=== PATIENT | female | born 1935 | race Caucasian/White ===

== ENCOUNTER 2023-11-25 10:20 | Inpatient (IN) ==
--- NOTE | 2023-11-25 11:14 | Emergency Department Note ---
History of Present Illness General Chief complaint: Fall Stated complaint: FELL INJURING R HIP Time Seen by Provider: 11/25/23 10:59 History of Present Illness Provider complaint: Fall Onset (ago): hour(s) (1.5) Location: lower extremity and right Maximum Pain Intensity: 8 Current Pain Intensity: 8 Quality: + stabbing and + sharp Relieved By: + immobilization Exacerbated By: + movement Associated symptoms: no chest pain, no cough, no fever/chills, no headaches, no nausea/vomiting or no shortness of breath 88-year-old female on Eliquis presents emergency department for fall. Patient reports she tripped on her shoe 1.5 hours ago. She states she landed on her right hip and is now having pain in her right hip rating down to her right lower extremity. Pain is made worse with movement better with immobilization. Patient states she did not hit her head. Home Medications Medication Instructions Recorded Confirmed Type alprazolam 0.25 mg tablet 0.25 mg PO DAILY PRN Anxiety 11/25/23 11/25/23 History apixaban 2.5 mg tablet (Eliquis) 2.5 mg PO BID 11/25/23 11/25/23 History dapagliflozin propanediol 10 mg 10 mg PO .LUNCH TIME 11/25/23 11/25/23 History tablet (Farxiga) furosemide 40 mg tablet 40 mg PO QAM 11/25/23 11/25/23 History hydralazine 100 mg tablet 100 mg PO TID 11/25/23 11/25/23 History nifedipine 30 mg tablet,extended 30 mg PO BID 11/25/23 11/25/23 History release Allergies Allergy/AdvReac Type Severity Reaction Status Date / Time amoxicillin [From Augmentin] Allergy Intermediate makes her Unverified 11/25/23 14:52 ill, vomits ciprofloxacin [From Cipro] Allergy Intermediate makes her Unverified 11/25/23 14:52 ill, vomits clavulanic acid Allergy Intermediate makes her Unverified 11/25/23 14:52 [From Augmentin] ill, vomits doxycycline Allergy Intermediate makes her Unverified 11/25/23 14:52 ill, vomits Sulfa (Sulfonamide Allergy Intermediate Daughter Unverified 11/25/23 14:52 Antibiotics) isnt too sure the reaction, more serious though metronidazole AdvReac Intermediate makes her Unverified 11/25/23 14:52 ill, vomits Past Med/Surg History Medical History No pertinent family history Diabetes HTN (hypertension) Surgical History No pertinent past surgical history Social History Smoking Status: Former smoker Feels Safe at Home: Yes Physical Exam Vital Signs Vital Signs - 24 hr 11/25/23 10:36 Temperature 36.6 C Temperature Source Temporal Artery Scan Pulse Rate 66 Respiratory Rate 16 Respiratory Effort / Characteristics Non-Labored Respiratory Depth Normal Blood Pressure 182/70 H Blood Pressure Mean 107 Pulse Oximetry 97 Oxygen Delivery Method Room Air Sepsis Recent Fever Within 48 Hours No Sepsis New/Unexplained Change in Mental Status No Sepsis Action Taken by Nursing No Action Required Physical Exam GENERAL: She is oriented to person, place, and time. She appears well-developed and well-nourished. HENT: Exam performed. -Head: Normocephalic and atraumatic. EYES: Conjunctivae and EOM are normal. Pupils are equal, round, and reactive to light. Right eye exhibits no discharge. Left eye exhibits no discharge. No scleral icterus. NECK: Normal range of motion. Neck supple. No JVD present. No spinous process tenderness present. CV: Normal rate, regular rhythm, normal heart sounds and intact distal pulses. There is no peripheral edema. Palpable radial pulses bue. PULM/CHEST: Effort normal and breath sounds normal. No respiratory distress. No stridor. She has no wheezes. She has no rales. ABD: The abdomen is soft. There is no tenderness. There is no rebound, no guarding MUSC/SKEL: Pelvis stable. Right lower extremity: Pain on palpation of the right hip and right femur. Ecchymosis over the right lateral tibial area. Palpable DP and PT pulses. Left lower extremity: Within normal limits. NEURO: She is alert and oriented to person, place, and time. No cranial nerve deficit or sensory deficit. Coordination and gait normal. GCS eye subscore is 4. GCS verbal subscore is 5. GCS motor subscore is 6. Cerebellar tests wnl. Course Course 1059: The patient was evaluated in room C6. A complete history and physical exam was performed Cardiac monitoring: An order was placed for continuous cardiac monitoring. The monitor shows a rate of 60 with sinus rhythm interpreted by fl 1447: Vital signs stable. Imaging show a right subcapital femur fracture. Dr. Selby made aware via [place] text and he agrees that the patient should be admitted to the hospitalist team with him on consult. [facility] hospitalist team made aware of the patient. Administered Medications Acetaminophen (Acetaminophen 500 Mg Tab) 1,000 mg PO Q8H CORUTNEY Stop: 12/25/23 17:59 Last Admin: 11/25/23 18:02 Dose: 1,000 mg Documented By: [facility] Discontinued Medications Hydralazine HCl (Hydralazine Tab 50 Mg Tab) 100 mg PO NOW STA Stop: 11/25/23 15:18 Last Admin: 11/25/23 16:16 Dose: 100 mg Documented By: [facility] Sodium Chloride (Nss) 1,000 mls @ 75 mls/hr IV .[id number] COURTNEY Stop: 11/26/23 03:34 Last Infusion: 11/25/23 17:51 Dose: Infused Documented By: Infusion: 11/25/23 17:51 Dose: 0 mls/hr Documented By: Admin: 11/25/23 16:20 Dose: 75 mls/hr Documented By: [facility] Acetaminophen (Ofirmev) 1,000 mg in 100 mls @ 400 mls/hr IV NOW STA Stop: 11/25/23 15:19 Last Infusion: 11/25/23 17:50 Dose: Infused Documented By: [facility] Admin: 11/25/23 16:17 Dose: 400 mls/hr Documented By: [facility] Miscellaneous (Patient's Height &/Or Weight Needed) 1 each N/A Q2H COURTNEY Stop: 12/25/23 17:59 Last Admin: 11/25/23 18:03 Dose: 1 each Documented By: AMS Morphine Sulfate (Morphine Sulfate 2 Mg/Ml Carp) 2 mg IV NOW STA Stop: 11/25/23 11:46 Last Admin: 11/25/23 11:54 Dose: 2 mg Documented By: ARS Morphine Sulfate (Morphine Sulfate 4 Mg/Ml 1 Ml Carp\Vial) 4 mg IV Q1H PRN PRN Reason: Severe Pain (Rating 7,8,9,10) Stop: 12/09/23 14:00 Last Admin: 11/25/23 14:22 Dose: 4 mg Documented By: CHARMAINE Ondansetron HCl (Ondansetron Inj 2 Mg/Ml 2 Ml Vial) 4 mg IV NOW STA Stop: 11/25/23 11:46 Last Admin: 11/25/23 11:54 Dose: 4 mg Documented By: CHARMAINE Oxycodone HCl (Oxycodone Hcl Ir 5 Mg Tab (Immediate Release)) 5 mg PO NOW STA Stop: 11/25/23 17:45 Last Admin: 11/25/23 18:03 Dose: 5 mg Documented By: MARISA Medical Decision Making Laboratory Data Attestation: I reviewed the patient's lab results. 11/25/23 11:31 11/25/23 11:31 Lab Results 11/25/23 11/25/23 11/25/23 Range/Units 11:31 11:38 14:55 WBC 9.52 (4.8-10.8) K/ul RBC 3.96 L (4.20-5.40) M/uL Hgb 11.6 L (12.0-16.0) g/dl POC Hgb 12.2 (12.0-16.0) g/dl Hct 35.4 L (37.0-47.0) % POC Hct 36 L (37-47) % MCV 89.4 (80.0-100.0) fL MCH 29.3 (25.0-34.0) pg MCHC 32.8 (32.0-36.0) g/dL RDW Std Deviation 45.4 (36.4-46.3) fL RDW Coeff of Darline 13.9 (11.5-14.5) % Plt Count 350 (130-400) K/uL MPV 9.0 L (9.4-12.4) fL Immature Gran % (Auto) 0.4 % Neut % (Auto) 77.7 % Lymph % (Auto) 14.0 % Glenn % (Auto) 6.6 % Eos % (Auto) 0.7 % Baso % (Auto) 0.6 % Neut # (Auto) 7.39 H (1.40-6.50) K/uL Lymph # (Auto) 1.33 (1.20-3.40) K/uL Glenn # (Auto) 0.63 H (0.11-0.59) K/uL Eos # (Auto) 0.07 (0.00-0.50) K/uL Baso # (Auto) 0.06 (0.00-0.20) K/uL Immature Gran # (Auto) 0.04 (0.01-0.20) K/uL PT 10.6 (9.0-12.0) Seconds INR 1.0 (0.9-1.1) APTT 29 (21-31) Seconds PTT Ratio 1.1 POC Sodium 135 (135-144) mmol/L Sodium 133 L (136-145) mmol/L POC Potassium 4.9 (3.3-5.0) mmol/L Potassium 4.8 (3.5-5.1) mmol/L POC Chloride 104 (101-112) mmol/L Chloride 102 (98-107) mmol/L Carbon Dioxide 20 L (21-32) mmol/L POC Total CO2 20 L (24-31) mmol/L Anion Gap 11 (3-11) POC Anion Gap 17.0 (16-25) mmol/L POC BUN 62 H (7-18) mg/dl BUN 68 H (6-23) mg/dl Creatinine 2.15 H (0.6-1.2) mg/dl POC Creatinine 2.5 H (0.6-1.3) mg/dl Est Cr Clr Drug Dosing Not Reportable Est GFR ( Amer) 23.1 ml/min Est GFR (Non-Af Amer) 19.9 ml/min BUN/Creatinine Ratio 31.6 H (10-20) Glucose 128 H (70-99(Fasting)) mg/dl POC Glucose (other) 128 H (70-99) mg/dl Calcium 9.1 (8.6-10.3) mg/dl POC Ioniz Calcium [place] 1.15 (1.12-1.32) mmol/l Urine Color Yellow Urine Appearance Clear (Clear) Urine pH 5.0 (4.5-7.5) Ur Specific [place] 1.008 (1.000-1.030) Urine Protein 1+ H (Negative) Urine Glucose (UA) 1+ H (Negative) Urine Ketones Negative (Negative) Urine Blood Negative (Negative) Urine Nitrite Negative (Negative) Urine Bilirubin Negative (Negative) Urine Urobilinogen Negative (Negative) Ur Leukocyte Esterase Negative (Negative) Urine WBC (Auto) 0-5 (0-5) /hpf Urine RBC (Auto) 0-2 (0-2) /hpf U Hyaline Cast (Auto) 0-2 (0-2) /lpf U Epithel Cells (Auto) 0-2 (0-2) /hpf Urine Bacteria (Auto) None Seen (None Seen) Imaging Data Attestation: I personally reviewed and interpreted this imaging study as follows: My Impression: Pelvis x-ray: Right femur fracture Radiologist's Impression: Cervical Spine CT 11/25/23 11:10 CT SCAN OF THE CERVICAL SPINE CLINICAL HISTORY: Trauma. Fall. COMPARISON STUDY: No priors. TECHNIQUE: CT scan of the cervical spine is performed from the skull base to the upper thoracic spine. Images are reviewed in the axial, sagittal, and coronal planes. IV contrast was not administered for this examination. A dose lowering technique was utilized adhering to the principles of ALARA. FINDINGS: Skeletal structures: The skeletal structures are osteopenic. There is no evidence of fracture or subluxation involving the cervical spine. Vertebral body height and alignment are maintained. There is straightening of the cervical lordosis. Anterior osteophytes are seen throughout the The odontoid process and lateral masses are intact. The atlantoaxial articulation is preserved noting productive degenerative change. The spinous processes appear intact. Intervertebral discs: There is moderate to severe disc space narrowing at C4-C5 and C5-C6 with associated endplate sclerosis. Moderate narrowing is seen at C3- C4 and C6-C7. Central canal: Posterior disc osteophyte complexes at C4-C5, C5-C6, and C6-C7 likely contribute to acquired compromise of the central canal. Soft tissues: The prevertebral and paraspinous soft tissues are within normal limits. The thyroid gland is heterogeneous. There is atherosclerotic calcification of the carotid bulbs. Calvarium: The visualized calvarium at the skull base appears intact. Brain parenchyma: Partially visualized brain parenchyma at the skull base is within normal limits. Sinuses and mastoids: The visualized paranasal sinuses are clear. The mastoid air cells are well pneumatized. Cerumen is noted in the left external auditory canal. Lung apices: Emphysematous change is noted at the apices. The imaged upper lobe lung parenchyma is otherwise clear. IMPRESSION: 1. There is no evidence of cervical spine fracture or subluxation. 2. Osteopenia and spondylotic change as above. ACT 112: Negative or not required by law. Electronically signed by: Michael Pringle M.D. 11/25/2023 12:34 PM Chest X-Ray 11/25/23 11:10 SINGLE VIEW CHEST CLINICAL HISTORY: Fall. FINDINGS: An AP upright chest radiograph is obtained. No prior studies are available for comparison at the time of dictation. The heart is enlarged noting atherosclerotic calcification of the thoracic aorta. The pulmonary vasculature is noncongested. Nonspecific interstitial thickening is likely chronic. The lungs and pleural spaces are clear. No pneumothorax is seen. The skeletal structures are osteopenic. The bony thorax is grossly intact. IMPRESSION: Cardiomegaly with no active disease in the chest. ACT 112: Negative or not required by law. Electronically signed by: Michael Pringle M.D. 11/25/2023 2:12 PM Femur X-Ray 11/25/23 11:10 SINGLE VIEW PELVIS; 2 VIEWS RIGHT HIP; 3 VIEWS RIGHT FEMUR CLINICAL HISTORY: Fall. Right leg injury. FINDINGS: An AP view of the pelvis, AP and frog-leg views of the right hip, with AP, frog-leg, and crosstable lateral views of the right femur are obtained. Correlation is made with pelvic CT performed earlier the same day 11/25/2023. The skeletal structures are osteopenic. There is an impacted subcapital fracture of the right proximal femur with overlying soft tissue edema. The distal right femur appears intact. No additional acute fracture is seen involving the left hip or the bony pelvis. Mild arthritic change and joint space narrowing is seen in the hips. Degenerative sclerosis is noted in the sacroiliac joints. Lumbosacral spondylosis is partially imaged. The right knee joint is grossly maintained. Phleboliths are seen in the pelvis. IMPRESSION: 1. Impacted subcapital fracture of the right proximal femur. 2. The distal right femur appears intact. 3. No additional fracture is seen involving the left hip or bony pelvis. Electronically signed by: Michael Pringle M.D. 11/25/2023 2:[address] 11/25/23 11:10 CT SCAN OF THE BRAIN WITHOUT IV CONTRAST CLINICAL HISTORY: Fall. COMPARISON STUDY: No priors. TECHNIQUE: Unenhanced axial CT scan of the brain is performed from the vertex to the skull base. A dose lowering technique was utilized adhering to the principles of ALARA. CT DOSE: 1407.47 mGy.cm FINDINGS: Brain parenchyma: There is age-related involutional change noting mild to moderate subcortical and periventricular microangiopathic disease. There is no hemorrhage, mass effect, or evidence of acute territorial ischemia by CT criteria. Hicks-white matter differentiation is preserved. No extra-axial fluid collection is seen. Ventricles, sulci, cisterns: Prominent secondary to involutional change. Intracranial vasculature: There is atherosclerotic calcification of the cavernous carotid and vertebral arteries. Calvarium: The skeletal structures are osteopenic. No depressed calvarial fracture is seen. Sinuses and mastoids: The visualized paranasal sinuses are clear. The mastoid air cells are well pneumatized. Orbits: The bony orbits are grossly intact. There are bilateral ocular lens implants. IMPRESSION: There is no hemorrhage, mass effect, or evidence of acute territorial ischemia by CT criteria. ACT 112: Negative or not required by law. Electronically signed by: Michael Pringle M.D. 11/25/2023 12:30 PM Hip/Pelvis X-Ray 11/25/23 11:11 SINGLE VIEW PELVIS; 2 VIEWS RIGHT HIP; 3 VIEWS RIGHT FEMUR CLINICAL HISTORY: Fall. Right leg injury. FINDINGS: An AP view of the pelvis, AP and frog-leg views of the right hip, with AP, frog-leg, and crosstable lateral views of the right femur are obtained. Correlation is made with pelvic CT performed earlier the same day 11/25/2023. The skeletal structures are osteopenic. There is an impacted subcapital fracture of the right proximal femur with overlying soft tissue edema. The distal right femur appears intact. No additional acute fracture is seen involving the left hip or the bony pelvis. Mild arthritic change and joint space narrowing is seen in the hips. Degenerative sclerosis is noted in the sacroiliac joints. Lumbosacral spondylosis is partially imaged. The right knee joint is grossly maintained. Phleboliths are seen in the pelvis. IMPRESSION: 1. Impacted subcapital fracture of the right proximal femur. 2. The distal right femur appears intact. 3. No additional fracture is seen involving the left hip or bony pelvis. Electronically signed by: Michael Pringle M.D. 11/25/2023 2:10 PM Tibia/Fibula X-Ray 11/25/23 11:11 LEFT TIBIA AND FIBULA 2 VIEWS CLINICAL HISTORY: Fall. Left leg injury. FINDINGS: AP and lateral views of the left tibia and fibula are obtained. No prior studies are available for comparison at the time of dictation. The skeletal structures are osteopenic. There is no radiographic evidence of left tibial or fibular fracture. The knee and ankle joints are grossly maintained. The overlying soft tissues are normal as imaged. IMPRESSION: No fracture is identified. Electronically signed by: Michael Pringle M.D. 11/25/2023 2:11 PM Abdomen/Pelvis CT 11/25/23 11:45 CT SCAN OF THE ABDOMEN AND PELVIS WITHOUT IV CONTRAST CLINICAL HISTORY: Fall. COMPARISON STUDY: No priors TECHNIQUE: CT scan of the abdomen and pelvis is performed from the lung bases to the proximal femora. Images are reviewed in the axial, sagittal, and coronal planes. IV contrast was not administered for this examination. Limited examination is significantly suboptimal without IV contrast in the setting of trauma. A dose lowering technique was utilized adhering to the principles of ALARA. FINDINGS: Lung bases: The heart is enlarged and without pericardial effusion. The lung bases are clear. Liver: The unenhanced liver is normal in size, contour, and attenuation. There is no intrahepatic biliary ductal dilatation. Gallbladder: There are calcified gallstones with no CT evidence of acute cholecystitis. Spleen: Normal in size and attenuation. Pancreas: The unenhanced pancreas is grossly unremarkable. Adrenal glands: There is nonspecific thickening of the adrenal glands. Kidneys: The unenhanced kidneys demonstrated cortical atrophy. There is mild bilateral hydronephrosis, likely related to degree of bladder distention. Simple and complex bilateral renal cysts measure up to 1.3 cm. No renal calculi are identified. Abdominal vasculature: The abdominal aorta is normal in course and caliber noting advanced atherosclerotic calcification. Bowel: There is rectosigmoid fecal retention and mild to moderate constipation. No bowel obstruction is seen. There is mild colonic diverticulosis without CT evidence of acute diverticulitis. The appendix is normal as visualized. Peritoneum: There is no intraperitoneal free air or abdominal ascites. Lymphadenopathy: None. Pelvic viscera: The bladder is distended but otherwise normal in appearance. The uterus and adnexa are normal as visualized. Skeletal structures: The skeletal structures are osteopenic. There is an impacted subcapital fracture of the right proximal femur with surrounding hemorrhage and lipohemarthrosis. The left proximal femur and the bony pelvis appear intact. There is an age-indeterminate superior endplate compression deformity of L2 with mild loss of height. No lytic or blastic lesions are seen. Soft tissues: The patient is cachectic. IMPRESSION: 1. There is no evidence of solid organ injury in the abdomen or pelvis on this unenhanced examination. 2. Impacted subcapital fracture of the right proximal femur. 3. There is a minimal and age indeterminate superior endplate compression deformity of L2 which may be chronic. Correlate for point tenderness. 4. No additional findings are suspicious for acute fracture. 5. Bladder distention. 6. Mild bilateral hydronephrosis is likely related to bladder distention. 7. Rectosigmoid fecal retention and moderate constipation. 8. Cardiomegaly. 9. Additional findings above. ACT 112: Negative or not required by law. Electronically signed by: Michael Pringle M.D. 11/25/2023 1:50 PM ECG Data Attestation: I personally reviewed and interpreted this ECG as follows: Rate (beats per minute): 56 Rhythm: + sinus bradycardia ECG Intervals/blocks: + Normal QRS, + Normal HI and + Normal QT-c ECG ST segments: + Normal ST segments MDM Narrative 1059: The patient was evaluated in room C6. A complete history and physical exam was performed Cardiac monitoring: An order was placed for continuous cardiac monitoring. The monitor shows a rate of 60 with sinus rhythm interpreted by me 1447: Vital signs stable. Imaging show a right subcapital femur fracture. Dr. Selby made aware via [place] text and he agrees that the patient should be admitted to the hospitalist team with him on consult. [facility] hospitalist team made aware of the patient. Impression & Plan Closed femur fracture Discharge Plan Visit Data Chief Complaint: Fall Stated Complaint: FELL INJURING R HIP ED Provider: Srikanth Finn Discharge Problem: Closed femur fracture Patient Disposition: Admitted As Inpatient Discharge Instructions Interventions: ED Discharge Assessment Last Done: 11/25/23 18:04 Discharge Problem: Closed femur fracture Qualifiers: Encounter type: initial encounter Femur location: unspecified portion of femur Laterality: right
[2023-11-25 11:50] LABS: iSTAT Creatinine 2.5 mg/dl (0.6-1.3); iSTAT Hemoglobin 12.2 g/dl (12.0-16.0); iSTAT Ionized Calcium 1.15 mmol/l (1.12-1.32); iSTAT Potassium 4.9 mmol/L (3.3-5.0)
[2023-11-25] MEDS: MoRPHine SULFATE 2 MG/ML CARP IV STA (11:54)
[2023-11-25] MEDS: ONDANSETRON INJ 2 MG/ML 2 ML VIAL IV STA (11:54)
[2023-11-25 11:56] LABS: Partial Thromboplastin Ratio 1.1; Partial Thromboplastin Time 29 Seconds (21-31); Prothrombin Time 10.6 Seconds (9.0-12.0)
[2023-11-25 12:01] LABS: Basophils # (auto) 0.06 K/uL (0.00-0.20); Basophils % (auto) 0.6 %; Eosinophils # (auto) 0.07 K/uL (0.00-0.50); Eosinophils % (auto) 0.7 %; Hematocrit (blood only) 35.4 % (37.0-47.0); Hemoglobin 11.6 g/dl (12.0-16.0); Immature Granulocytes # (auto) 0.04 K/uL (0.01-0.20); Immature Granulocytes % (auto) 0.4 %; Lymphocytes # (auto) 1.33 K/uL (1.20-3.40); Mean Corpuscular Hemoglobin 29.3 pg (25.0-34.0); Mean Corpuscular Hgb Conc 32.8 g/dL (32.0-36.0); Mean Corpuscular Volume 89.4 fL (80.0-100.0); Monocytes # (auto) 0.63 K/uL (0.11-0.59); Monocytes % (auto) 6.6 %; Neutrophils # (auto) 7.39 K/uL (1.40-6.50); Neutrophils % (auto) 77.7 %; Platelet Count 350 K/uL (130-400); RDW Coefficient of Variation 13.9 % (11.5-14.5); RDW Standard Deviation 45.4 fL (36.4-46.3); Red Blood Count 3.96 M/uL (4.20-5.40); White Blood Count 9.52 K/ul (4.8-10.8)
[2023-11-25 12:07] LABS: Anion Gap 11 (3-11); BUN Creatinine Ratio 31.6 (10-20); Blood Urea Nitrogen 68 mg/dl (6-23); Carbon Dioxide 20 mmol/L (21-32); Chloride 102 mmol/L (98-107); Est GFR (African American) 23.1 ml/min; Est GFR (Non-African American) 19.9 ml/min; Glucose 128 mg/dl (70-99(Fasting)); Potassium 4.8 mmol/L (3.5-5.1); Sodium 133 mmol/L (136-145)
--- NOTE | 2023-11-25 12:31 | CT Scan Report ---
CT SCAN OF THE BRAIN WITHOUT IV CONTRAST CLINICAL HISTORY: Fall. COMPARISON STUDY: No priors. TECHNIQUE: Unenhanced axial CT scan of the brain is performed from the vertex to the skull base. A do se lowering technique was utilized adhering to the principles of ALARA. CT DOSE: 1407.47 mGy.cm FINDINGS: Brain parenchyma: There is age-related involutional change noting mild to moderate subcortical and pe riventricular microangiopathic disease. There is no hemorrhage, mass effect, or evidence of acute ter ritorial ischemia by CT criteria. Hicks-white matter differentiation is preserved. No extra-axial flui d collection is seen. Ventricles, sulci, cisterns: Prominent secondary to involutional change. Intracranial vasculature: There is atherosclerotic calcification of the cavernous carotid and vertebr al arteries. Calvarium: The skeletal structures are osteopenic. No depressed calvarial fracture is seen. Sinuses and mastoids: The visualized paranasal sinuses are clear. The mastoid air cells are well pneu matized. Orbits: The bony orbits are grossly intact. There are bilateral ocular lens implants. IMPRESSION: There is no hemorrhage, mass effect, or evidence of acute territorial ischemia by CT leydi ortiz. ACT 112: Negative or not required by law. Electronically signed by: Michael Pringle M.D. 11/25/2023 12:30 PM
--- NOTE | 2023-11-25 12:36 | CT Scan Report ---
CT SCAN OF THE CERVICAL SPINE CLINICAL HISTORY: Trauma. Fall. COMPARISON STUDY: No priors. TECHNIQUE: CT scan of the cervical spine is performed from the skull base to the upper thoracic spine . Images are reviewed in the axial, sagittal, and coronal planes. IV contrast was not administered fo r this examination. A dose lowering technique was utilized adhering to the principles of ALARA. FINDINGS: Skeletal structures: The skeletal structures are osteopenic. There is no evidence of fracture or subl uxation involving the cervical spine. Vertebral body height and alignment are maintained. There is s traightening of the cervical lordosis. Anterior osteophytes are seen throughout the The odontoid proc ess and lateral masses are intact. The atlantoaxial articulation is preserved noting productive degen erative change. The spinous processes appear intact. Intervertebral discs: There is moderate to severe disc space narrowing at C4-C5 and C5-C6 with associ ated endplate sclerosis. Moderate narrowing is seen at C3-C4 and C6-C7. Central canal: Posterior disc osteophyte complexes at C4-C5, C5-C6, and C6-C7 likely contribute to ac quired compromise of the central canal. Soft tissues: The prevertebral and paraspinous soft tissues are within normal limits. The thyroid gla nd is heterogeneous. There is atherosclerotic calcification of the carotid bulbs. Calvarium: The visualized calvarium at the skull base appears intact. Brain parenchyma: Partially visualized brain parenchyma at the skull base is within normal limits. Sinuses and mastoids: The visualized paranasal sinuses are clear. The mastoid air cells are well pneu matized. Cerumen is noted in the left external auditory canal. Lung apices: Emphysematous change is noted at the apices. The imaged upper lobe lung parenchyma is ot herwise clear. IMPRESSION: 1. There is no evidence of cervical spine fracture or subluxation. 2. Osteopenia and spondylotic change as above. ACT 112: Negative or not required by law. Electronically signed by: Michael Pringle M.D. 11/25/2023 12:34 PM
[2023-11-25 13:23] LABS: Calcium 9.1 mg/dl (8.6-10.3)
--- NOTE | 2023-11-25 13:52 | CT Scan Report ---
CT SCAN OF THE ABDOMEN AND PELVIS WITHOUT IV CONTRAST CLINICAL HISTORY: Fall. COMPARISON STUDY: No priors TECHNIQUE: CT scan of the abdomen and pelvis is performed from the lung bases to the proximal femora. Images are reviewed in the axial, sagittal, and coronal planes. IV contrast was not administered for this examination. Limited examination is significantly suboptimal without IV contrast in the setting of trauma. A dose lowering technique was utilized adhering to the principles of ALARA. FINDINGS: Lung bases: The heart is enlarged and without pericardial effusion. The lung bases are clear. Liver: The unenhanced liver is normal in size, contour, and attenuation. There is no intrahepatic benjamin iary ductal dilatation. Gallbladder: There are calcified gallstones with no CT evidence of acute cholecystitis. Spleen: Normal in size and attenuation. Pancreas: The unenhanced pancreas is grossly unremarkable. Adrenal glands: There is nonspecific thickening of the adrenal glands. Kidneys: The unenhanced kidneys demonstrated cortical atrophy. There is mild bilateral hydronephrosis , likely related to degree of bladder distention. Simple and complex bilateral renal cysts measure up to 1.3 cm. No renal calculi are identified. Abdominal vasculature: The abdominal aorta is normal in course and caliber noting advanced atheroscle rotic calcification. Bowel: There is rectosigmoid fecal retention and mild to moderate constipation. No bowel obstruction is seen. There is mild colonic diverticulosis without CT evidence of acute diverticulitis. The append ix is normal as visualized. Peritoneum: There is no intraperitoneal free air or abdominal ascites. Lymphadenopathy: None. Pelvic viscera: The bladder is distended but otherwise normal in appearance. The uterus and adnexa ar e normal as visualized. Skeletal structures: The skeletal structures are osteopenic. There is an impacted subcapital fracture of the right proximal femur with surrounding hemorrhage and lipohemarthrosis. The left proximal femu r and the bony pelvis appear intact. There is an age-indeterminate superior endplate compression defo rmity of L2 with mild loss of height. No lytic or blastic lesions are seen. Soft tissues: The patient is cachectic. IMPRESSION: 1. There is no evidence of solid organ injury in the abdomen or pelvis on this unenhanced examination . 2. Impacted subcapital fracture of the right proximal femur. 3. There is a minimal and age indeterminate superior endplate compression deformity of L2 which may b e chronic. Correlate for point tenderness. 4. No additional findings are suspicious for acute fracture. 5. Bladder distention. 6. Mild bilateral hydronephrosis is likely related to bladder distention. 7. Rectosigmoid fecal retention and moderate constipation. 8. Cardiomegaly. 9. Additional findings above. ACT 112: Negative or not required by law. Electronically signed by: Michael Pringle M.D. 11/25/2023 1:50 PM
[2023-11-25] MEDS ORDERED: MoRPHine SULFATE 2 MG/ML CARP IV PRN (14:01)
--- NOTE | 2023-11-25 14:12 | XRay Report ---
SINGLE VIEW PELVIS; 2 VIEWS RIGHT HIP; 3 VIEWS RIGHT FEMUR CLINICAL HISTORY: Fall. Right leg injury. FINDINGS: An AP view of the pelvis, AP and frog-leg views of the right hip, with AP, frog-leg, and cr osstable lateral views of the right femur are obtained. Correlation is made with pelvic CT performed earlier the same day 11/25/2023. The skeletal structures are osteopenic. There is an impacted subcapita l fracture of the right proximal femur with overlying soft tissue edema. The distal right femur appea rs intact. No additional acute fracture is seen involving the left hip or the bony pelvis. Mild arthr itic change and joint space narrowing is seen in the hips. Degenerative sclerosis is noted in the sac roiliac joints. Lumbosacral spondylosis is partially imaged. The right knee joint is grossly maintain ed. Phleboliths are seen in the pelvis. IMPRESSION: 1. Impacted subcapital fracture of the right proximal femur. 2. The distal right femur appears intact. 3. No additional fracture is seen involving the left hip or bony pelvis. Electronically signed by: Michael Prignle M.D. 11/25/2023 2:10 PM
--- NOTE | 2023-11-25 14:13 | XRay Report ---
LEFT TIBIA AND FIBULA 2 VIEWS CLINICAL HISTORY: Fall. Left leg injury. FINDINGS: AP and lateral views of the left tibia and fibula are obtained. No prior studies are availa ble for comparison at the time of dictation. The skeletal structures are osteopenic. There is no radi ographic evidence of left tibial or fibular fracture. The knee and ankle joints are grossly maintaine d. The overlying soft tissues are normal as imaged. IMPRESSION: No fracture is identified. Electronically signed by: Michael Pringle M.D. 11/25/2023 2:11 PM
--- NOTE | 2023-11-25 14:14 | XRay Report ---
SINGLE VIEW CHEST CLINICAL HISTORY: Fall. FINDINGS: An AP upright chest radiograph is obtained. No prior studies are available for comparison a t the time of dictation. The heart is enlarged noting atherosclerotic calcification of the thoracic a yuki. The pulmonary vasculature is noncongested. Nonspecific interstitial thickening is likely chroni c. The lungs and pleural spaces are clear. No pneumothorax is seen. The skeletal structures are osteo penic. The bony thorax is grossly intact. IMPRESSION: Cardiomegaly with no active disease in the chest. ACT 112: Negative or not required by law. Electronically signed by: Michael Pringle M.D. 11/25/2023 2:12 PM
[2023-11-25] MEDS: MoRPHine SULFATE 4 MG/ML 1 ML CARP\\VIAL IV PRN (14:22)
--- NOTE | 2023-11-25 15:12 | History & Physical Report ---
Date of Service November 25, 2023 Assessment & Plan (1) Fall: (2) Closed right femoral fracture: Plan: Patient is 88 year old female with PMH CKD IV, HTN, pulmonary hypertension, paroxysmal atrial fibrillation anticoagulated on Eliquis, sinus bradycardia presented to ER with complaint of trip and fall and right hip pain today. In ER patient hypertensive, HR 66, other vital stable CT head: No acute intracranial abnormality Hip pelvis x-ray: Impacted subcapital fracture of the right proximal femur Chest x-ray: No acute infiltrate. cardiomegaly CTA Abd/Pelvis: There is no evidence of solid organ injury in the abdomen or pelvis on this unenhanced examination. Impacted subcapital fracture of the right proximal femur. There is a minimal and age indeterminate superior endplate compression deformity of L2 which may be chronic. Correlate for point tenderness. No additional findings are suspicious for acute fracture. Bladder distention. Mild bilateral hydronephrosis is likely related to bladder distention. Rectosigmoid fecal retention and moderate constipation. Cardiomegaly. Bedrest Scheduled Tylenol, oxycodone, Dilaudid prn pain. Avoid NSAIDs with h/o CKD Bowel regimen Incentive spirometry NPO midnight Patient >4 METs functional capacity at baseline Ortho consult. CBC, BMP in am (3) HTN (hypertension): Plan: In ER patient hypertensive with SBP up to 200 Missed home afternoon dose hydralazine and will dose now. Will attempt improved pain control Monitor BP closely, may need to add additional agent Continue home nifedipine, hydralazine (4) CKD (chronic kidney disease), stage IV: Plan: Cr: 2.1. Was 1.8 on 05/2023 per review of patient labs from patient's portal. Daughter later was able to further look patient's portal and reports creatinine was 1.7 last month Follows with nephrology, Drew Zabala in [place], [place]. Continue farxiga Hold Lasix for now (5) Paroxysmal atrial fibrillation: Plan: Anticoagulated on Eliquis History sinus bradycardia and not on beta-blockers Hold home Eliquis (6) Sinus bradycardia: Plan: History chronic sinus bradycardia In ER HR 50s-60s Patient not on beta-blockers DVT Prophylaxis SCDs Full Code as per discussion with pt Follows with Dr Jaimee Beaulieu. [facility] in [place], [place] for routine care Pt was seen and care coordinated with Dr Arnold. See addendum I spent a total of 80 minutes reviewing notes, outpatient records, labs, medication, coordinating, documenting and providing care for this patient excluding time spent in the performance of separately billed services. History of Present Illness Chief Complaint: Fall Primary Care Provider: NO PCP Patient is 88 year old female with PMH CKD IV, HTN, pulmonary hypertension, paroxysmal atrial fibrillation anticoagulated on Eliquis, sinus bradycardia presented to ER with complaint of trip and fall and right hip pain. History obtained from patient, patient's daughter. Patient's daughter was able to partially access some of patient's medical history and labs via patient portal. Patient states was dusting today when she stepped back and tripped over her shoe causing her to fall onto her right side. Denies hitting head or LOC. Patient complains of pain to her right hip that is radiating to her right thigh. She states she struggled to get up however was able to get up onto her left leg but had significant pain and was unable to bear weight on her right leg. Denies any other extremity pain. Last took Eliquis this morning. She reports took morning meds however missed her midday doses. Denies fever/chills, diaphoresis, N/V/D/C, MEDEL, dizziness, syncope, vision changes, neck pain, CP, SOB, orthopnea, palpitations, cough, sore throat, rhinorrhea, abdominal pain, paresthesias, extremity edema, rashes, urinary symptoms. Allergies Allergy/AdvReac Type Severity Reaction Status Date / Time amoxicillin [From Augmentin] Allergy Intermediate makes her Unverified 11/25/23 14:52 ill, vomits ciprofloxacin [From Cipro] Allergy Intermediate makes her Unverified 11/25/23 14:52 ill, vomits clavulanic acid Allergy Intermediate makes her Unverified 11/25/23 14:52 [From Augmentin] ill, vomits doxycycline Allergy Intermediate makes her Unverified 11/25/23 14:52 ill, vomits Sulfa (Sulfonamide Allergy Intermediate Daughter Unverified 11/25/23 14:52 Antibiotics) isnt too sure the reaction, more serious though metronidazole AdvReac Intermediate makes her Unverified 11/25/23 14:52 ill, vomits Home Medications Medication Instructions Recorded Confirmed Type alprazolam 0.25 mg tablet 0.25 mg PO DAILY PRN Anxiety 11/25/23 11/25/23 History apixaban 2.5 mg tablet (Eliquis) 2.5 mg PO BID 11/25/23 11/25/23 History dapagliflozin propanediol 10 mg 10 mg PO .LUNCH TIME 11/25/23 11/25/23 History tablet (Farxiga) furosemide 40 mg tablet 40 mg PO QAM 11/25/23 11/25/23 History hydralazine 100 mg tablet 100 mg PO TID 11/25/23 11/25/23 History nifedipine 30 mg tablet,extended 30 mg PO BID 11/25/23 11/25/23 History release Past Med/Surg History Medical History (Updated 11/25/23 @ 20:40 by Becky Boone PA-C) Sinus bradycardia History of pericarditis Paroxysmal atrial fibrillation CKD (chronic kidney disease), stage IV Pulmonary hypertension HLD (hyperlipidemia) HTN (hypertension) Surgical History (Updated 11/25/23 @ 20:32 by Becky Boone PA-C) Hx of tonsillectomy History of cataract surgery Family History (Updated 11/25/23 @ 20:33 by Becky Boone PA-C) Other Hypertension Social History (Updated 11/25/23 @ 20:33 by Becky Boone PA-C) Smoking Status: Former smoker Hx Alcohol Use: Yes Alcohol type: beer Alcohol Intake Frequency: Monthly or Less Hx Substance Use: No Preferred Language: Botswan[place] Communication Ability: Effective Supplier Manager Required: No Current Living Situation: Alone Current Living Situation Comment: 2 story tall house Feels Safe at Home: Yes Safety Concerns: Feels Safe At This Time Review of Systems Review of Systems: All systems reviewed & are unremarkable except as noted in HPI & below Physical Exam Physical Exam: General: mild distress secondary to right hip pain, WDWN Head: normocephalic, atraumatic Eyes: PERRL, conjunctiva non-injected, anicteric ENT: normal inspection external ears, nose, mucous membranes moist Neck: supple, trachea midline, non-tender Lungs: clear, no respiratory distress, no wheezing/rhonchi/rales CV: RRR, + murmur, no JVD, no pretibial edema Abd: normal BS, soft, non-tender Ext: no cyanosis, no calf tenderness; RLE: +diffuse tenderness to palpation anterior hip, no attempted ROM, distal pulses palpable. LLE and BUE with ROM intact and non-tender. Neuro: A&O x 3, no focal deficits noted, normal affect Skin: warm, dry Results & Data Results & Data Vital Signs (Past 12 Hours) Vital Signs Temp Pulse Resp BP Pulse Ox O2 Del Method 11/25/23 10:36 36.6 C 66 16 182/70 H 97 Room Air Laboratory Results Short CBC 11/25/23 Range/Units 11:31 WBC 9.52 (4.8-10.8) K/ul Hgb 11.6 L (12.0-16.0) g/dl Hct 35.4 L (37.0-47.0) % Plt Count 350 (130-400) K/uL BMP 11/25/23 11:31 Sodium 133 L Potassium 4.8 Chloride 102 Carbon Dioxide 20 L BUN 68 H Creatinine 2.15 H Glucose 128 H Calcium 9.1 Urine 11/25/23 Range/Units 14:55 Urine Color Yellow Urine Appearance Clear (Clear) Urine pH 5.0 (4.5-7.5) Ur Specific [place] 1.008 (1.000-1.030) Urine Protein 1+ H (Negative) Urine Glucose (UA) 1+ H (Negative) Diagnostic Findings Cervical Spine CT 11/25/23 11:10 CT SCAN OF THE CERVICAL SPINE CLINICAL HISTORY: Trauma. Fall. COMPARISON STUDY: No priors. TECHNIQUE: CT scan of the cervical spine is performed from the skull base to the upper thoracic spine. Images are reviewed in the axial, sagittal, and coronal planes. IV contrast was not administered for this examination. A dose lowering technique was utilized adhering to the principles of ALARA. FINDINGS: Skeletal structures: The skeletal structures are osteopenic. There is no evidence of fracture or subluxation involving the cervical spine. Vertebral body height and alignment are maintained. There is straightening of the cervical lordosis. Anterior osteophytes are seen throughout the The odontoid process and lateral masses are intact. The atlantoaxial articulation is preserved noting productive degenerative change. The spinous processes appear intact. Intervertebral discs: There is moderate to severe disc space narrowing at C4-C5 and C5-C6 with associated endplate sclerosis. Moderate narrowing is seen at C3- C4 and C6-C7. Central canal: Posterior disc osteophyte complexes at C4-C5, C5-C6, and C6-C7 likely contribute to acquired compromise of the central canal. Soft tissues: The prevertebral and paraspinous soft tissues are within normal limits. The thyroid gland is heterogeneous. There is atherosclerotic calcification of the carotid bulbs. Calvarium: The visualized calvarium at the skull base appears intact. Brain parenchyma: Partially visualized brain parenchyma at the skull base is within normal limits. Sinuses and mastoids: The visualized paranasal sinuses are clear. The mastoid air cells are well pneumatized. Cerumen is noted in the left external auditory canal. Lung apices: Emphysematous change is noted at the apices. The imaged upper lobe lung parenchyma is otherwise clear. IMPRESSION: 1. There is no evidence of cervical spine fracture or subluxation. 2. Osteopenia and spondylotic change as above. ACT 112: Negative or not required by law. Electronically signed by: Michael Pringle M.D. 11/25/2023 12:34 PM Chest X-Ray 11/25/23 11:10 SINGLE VIEW CHEST CLINICAL HISTORY: Fall. FINDINGS: An AP upright chest radiograph is obtained. No prior studies are available for comparison at the time of dictation. The heart is enlarged noting atherosclerotic calcification of the thoracic aorta. The pulmonary vasculature is noncongested. Nonspecific interstitial thickening is likely chronic. The lungs and pleural spaces are clear. No pneumothorax is seen. The skeletal structures are osteopenic. The bony thorax is grossly intact. IMPRESSION: Cardiomegaly with no active disease in the chest. ACT 112: Negative or not required by law. Electronically signed by: Michael Pringle M.D. 11/25/2023 2:12 PM Femur X-Ray 11/25/23 11:10 SINGLE VIEW PELVIS; 2 VIEWS RIGHT HIP; 3 VIEWS RIGHT FEMUR CLINICAL HISTORY: Fall. Right leg injury. FINDINGS: An AP view of the pelvis, AP and frog-leg views of the right hip, with AP, frog-leg, and crosstable lateral views of the right femur are obtained. Correlation is made with pelvic CT performed earlier the same day 11/25/2023. The skeletal structures are osteopenic. There is an impacted subcapital fracture of the right proximal femur with overlying soft tissue edema. The distal right femur appears intact. No additional acute fracture is seen involving the left hip or the bony pelvis. Mild arthritic change and joint space narrowing is seen in the hips. Degenerative sclerosis is noted in the sacroiliac joints. Lumbosacral spondylosis is partially imaged. The right knee joint is grossly maintained. Phleboliths are seen in the pelvis. IMPRESSION: 1. Impacted subcapital fracture of the right proximal femur. 2. The distal right femur appears intact. 3. No additional fracture is seen involving the left hip or bony pelvis. Electronically signed by: Michael Pringle M.D. 11/25/2023 2:[address] 11/25/23 11:10 CT SCAN OF THE BRAIN WITHOUT IV CONTRAST CLINICAL HISTORY: Fall. COMPARISON STUDY: No priors. TECHNIQUE: Unenhanced axial CT scan of the brain is performed from the vertex to the skull base. A dose lowering technique was utilized adhering to the principles of ALARA. CT DOSE: 1407.47 mGy.cm FINDINGS: Brain parenchyma: There is age-related involutional change noting mild to moderate subcortical and periventricular microangiopathic disease. There is no hemorrhage, mass effect, or evidence of acute territorial ischemia by CT criteria. Hicks-white matter differentiation is preserved. No extra-axial fluid collection is seen. Ventricles, sulci, cisterns: Prominent secondary to involutional change. Intracranial vasculature: There is atherosclerotic calcification of the cavernous carotid and vertebral arteries. Calvarium: The skeletal structures are osteopenic. No depressed calvarial fracture is seen. Sinuses and mastoids: The visualized paranasal sinuses are clear. The mastoid air cells are well pneumatized. Orbits: The bony orbits are grossly intact. There are bilateral ocular lens implants. IMPRESSION: There is no hemorrhage, mass effect, or evidence of acute territorial ischemia by CT criteria. ACT 112: Negative or not required by law. Electronically signed by: Michael Pringle M.D. 11/25/2023 12:30 PM Hip/Pelvis X-Ray 11/25/23 11:11 SINGLE VIEW PELVIS; 2 VIEWS RIGHT HIP; 3 VIEWS RIGHT FEMUR CLINICAL HISTORY: Fall. Right leg injury. FINDINGS: An AP view of the pelvis, AP and frog-leg views of the right hip, with AP, frog-leg, and crosstable lateral views of the right femur are obtained. Correlation is made with pelvic CT performed earlier the same day 11/25/2023. The skeletal structures are osteopenic. There is an impacted subcapital fracture of the right proximal femur with overlying soft tissue edema. The distal right femur appears intact. No additional acute fracture is seen involving the left hip or the bony pelvis. Mild arthritic change and joint space narrowing is seen in the hips. Degenerative sclerosis is noted in the sacroiliac joints. Lumbosacral spondylosis is partially imaged. The right knee joint is grossly maintained. Phleboliths are seen in the pelvis. IMPRESSION: 1. Impacted subcapital fracture of the right proximal femur. 2. The distal right femur appears intact. 3. No additional fracture is seen involving the left hip or bony pelvis. Electronically signed by: Michael Pringle M.D. 11/25/2023 2:10 PM Tibia/Fibula X-Ray 11/25/23 11:11 LEFT TIBIA AND FIBULA 2 VIEWS CLINICAL HISTORY: Fall. Left leg injury. FINDINGS: AP and lateral views of the left tibia and fibula are obtained. No prior studies are available for comparison at the time of dictation. The skeletal structures are osteopenic. There is no radiographic evidence of left tibial or fibular fracture. The knee and ankle joints are grossly maintained. The overlying soft tissues are normal as imaged. IMPRESSION: No fracture is identified. Electronically signed by: Michael Pringle M.D. 11/25/2023 2:11 PM Abdomen/Pelvis CT 11/25/23 11:45 CT SCAN OF THE ABDOMEN AND PELVIS WITHOUT IV CONTRAST CLINICAL HISTORY: Fall. COMPARISON STUDY: No priors TECHNIQUE: CT scan of the abdomen and pelvis is performed from the lung bases to the proximal femora. Images are reviewed in the axial, sagittal, and coronal planes. IV contrast was not administered for this examination. Limited examination is significantly suboptimal without IV contrast in the setting of trauma. A dose lowering technique was utilized adhering to the principles of ALARA. FINDINGS: Lung bases: The heart is enlarged and without pericardial effusion. The lung bases are clear. Liver: The unenhanced liver is normal in size, contour, and attenuation. There is no intrahepatic biliary ductal dilatation. Gallbladder: There are calcified gallstones with no CT evidence of acute cholecystitis. Spleen: Normal in size and attenuation. Pancreas: The unenhanced pancreas is grossly unremarkable. Adrenal glands: There is nonspecific thickening of the adrenal glands. Kidneys: The unenhanced kidneys demonstrated cortical atrophy. There is mild bilateral hydronephrosis, likely related to degree of bladder distention. Simple and complex bilateral renal cysts measure up to 1.3 cm. No renal calculi are identified. Abdominal vasculature: The abdominal aorta is normal in course and caliber noting advanced atherosclerotic calcification. Bowel: There is rectosigmoid fecal retention and mild to moderate constipation. No bowel obstruction is seen. There is mild colonic diverticulosis without CT evidence of acute diverticulitis. The appendix is normal as visualized. Peritoneum: There is no intraperitoneal free air or abdominal ascites. Lymphadenopathy: None. Pelvic viscera: The bladder is distended but otherwise normal in appearance. The uterus and adnexa are normal as visualized. Skeletal structures: The skeletal structures are osteopenic. There is an impacted subcapital fracture of the right proximal femur with surrounding hemorrhage and lipohemarthrosis. The left proximal femur and the bony pelvis appear intact. There is an age-indeterminate superior endplate compression deformity of L2 with mild loss of height. No lytic or blastic lesions are seen. Soft tissues: The patient is cachectic. IMPRESSION: 1. There is no evidence of solid organ injury in the abdomen or pelvis on this unenhanced examination. 2. Impacted subcapital fracture of the right proximal femur. 3. There is a minimal and age indeterminate superior endplate compression deformity of L2 which may be chronic. Correlate for point tenderness. 4. No additional findings are suspicious for acute fracture. 5. Bladder distention. 6. Mild bilateral hydronephrosis is likely related to bladder distention. 7. Rectosigmoid fecal retention and moderate constipation. 8. Cardiomegaly. 9. Additional findings above. ACT 112: Negative or not required by law. Electronically signed by: Michael Pringle M.D. 11/25/2023 1:50 PM Supervising Physician Co-Signing Physician Notes I have seen and examined the patient and have discussed the case with the provider above. I have reviewed the advanced practitioner's documentation, and I agree with, and take responsibility for that plan of care. 88 yo F s/p fall on apixaban. She didn't hit her head. Afte rseveral hours there is no new pain reported anywhere. Subcapital fracture of the right proximal femur found on trauma survey. She appears in NAD and is WNWD. CV and cardio exam within normal limits. No h/o issues with anesthesia. No h/o blood clots. Denies CP or SOB in the last month and is very active at baseline. Elevated creatinine and age pose additional risk perioperatively, would recommend holding to proceed to surgery for 48 hours to allow apixaban to wear off. Last dose was am of 11/24. LAbs/MEds/Imaging/EKG reviewed. No issues with proceeding to surgery when able. Cont pain control efforts. Monitor BMP in setting of known CKD. DO [place]
[2023-11-25 15:38] LABS: Appearance Urine Clear (Clear); Bacteria Urine Automated None Seen (None Seen); Bilirubin Urine Negative (Negative); Blood Urine Negative (Negative); Cast Urine Automated 0-2 /lpf (0-2); Color Urine Yellow; Epithelial Cell Urine Auto 0-2 /hpf (0-2); Glucose Urine UA 1+ (Negative); Ketones Urine Negative (Negative); Leukocyte Esterase Urine Negative (Negative); Nitrite Urine Negative (Negative); Protein Urine 1+ (Negative); RBC Urine Automated 0-2 /hpf (0-2); Specific Gravity Urine 1.008 (1.000-1.030); Urobilinogen Urine Negative (Negative); WBC Urine Automated 0-5 /hpf (0-5)
[2023-11-25] MEDS: hydrALAZINE TAB 50 MG TAB PO STA (16:16)
[2023-11-25] MEDS: ACETAMINOPHEN 1,000 MG/100 ML VIAL IV STA (16:17)
[2023-11-25] MEDS: SODIUM CHLORIDE 0.9% 1,000 ML IV SCH (16:20)
[2023-11-25] MEDS ORDERED: bisacodyL 10 MG SUPP PR PRN (17:44)
[2023-11-25] MEDS ORDERED: HYDROmorphone INJ 0.5 MG/0.5 ML SYR IV PRN (17:44)
[2023-11-25] MEDS ORDERED: MAGNESIUM HYDROXIDE SUSP 30 ML UDC PO PRN (17:44)
[2023-11-25] MEDS ORDERED: NALOXONE HCL 0.4 MG/1 ML VIAL/CARP IV PRN (17:44)
[2023-11-25] MEDS ORDERED: ONDANSETRON INJ 2 MG/ML 2 ML VIAL IV PRN (17:44)
[2023-11-25] MEDS: ACETAMINOPHEN 500 MG TAB PO SCH (18:02)
[2023-11-25] MEDS: oxyCODONE HCL IR 5 MG TAB (IMMEDIATE RELEASE) PO STA (18:03)
[2023-11-25] MEDS: Patient's HEIGHT &/or WEIGHT Needed SCH (18:03)
[2023-11-25] MEDS: hydrALAZINE HCL 20 MG/ML VIAL IV STA (19:02)
[2023-11-25] MEDS: NIFEdipine EXTENDED REL 30 MG TABCR PO SCH (20:18)
[2023-11-25] MEDS: hydrALAZINE TAB 50 MG TAB PO SCH (20:19)
[2023-11-25] MEDS: hydrALAZINE HCL 20 MG/ML VIAL IV PRN (23:22)
[2023-11-26] MEDS: oxyCODONE HCL IR 5 MG TAB (IMMEDIATE RELEASE) PO PRN (06:30)
[2023-11-26 07:09] LABS: Hematocrit (blood only) 30.9 % (37.0-47.0); Hemoglobin 10.1 g/dl (12.0-16.0); Mean Corpuscular Hemoglobin 29.7 pg (25.0-34.0); Mean Corpuscular Hgb Conc 32.7 g/dL (32.0-36.0); Mean Corpuscular Volume 90.9 fL (80.0-100.0); Platelet Count 259 K/uL (130-400); RDW Coefficient of Variation 14.1 % (11.5-14.5); RDW Standard Deviation 46.9 fL (36.4-46.3); White Blood Count 8.94 K/ul (4.8-10.8)
[2023-11-26 07:33] LABS: Albumin Globulin Ratio 1.1 (0.9-2); Albumin Level 3.6 gm/dl (3.4-5.0); BUN Creatinine Ratio 26.9 (10-20); Bilirubin,Total 0.4 mg/dl (0.2-1.0); Calcium 8.3 mg/dl (8.6-10.3); Creatinine Clr Calc Pharmacy 12.1 ml/min; Est GFR (African American) 20.4 ml/min; Est GFR (Non-African American) 17.6 ml/min; Globulin 3.2 gm/dl (2.5-4.0); Total Protein 6.8 gm/dl (6.0-8.3)
[2023-11-26] MEDS ORDERED: POLYETHYLENE (MIRALAX) 17 GM PACK PO PRN (08:56)
--- NOTE | 2023-11-26 09:20 | Orthopedic Consultation ---
Date of Service November 26, 2023 Assessment & Plan (1) Closed right femoral fracture: We discussed the diagnosis and treatment options at bedside today. I recommended cannulated screw fixation of the right hip. She understands the risk, benefits, and alternatives to procedures like to proceed. Questions were answered and consents were signed. Time was spent scribing the procedure and postop expectations. The decision was made for surgery. She is currently NPO. We will plan to do the procedure later this morning. History of Present Illness Reason for Consultation: Right hip fracture. Attending Physician: Ryley Bee MD Kiera is a pleasant 88-year-old female who is in town for graduation. She normally lives in [place]. She is a community ambulator without assistance. Unfortunately she fell and injured her right hip. She came to the emergency room where radiographs demonstrated a valgus displaced right femoral neck fracture. She was admitted to the hospitalist service. Orthopedics was consulted to evaluate and treat.. . Allergies Allergy/AdvReac Type Severity Reaction Status Date / Time amoxicillin [From Augmentin] Allergy Intermediate makes her Unverified 11/25/23 14:52 ill, vomits ciprofloxacin [From Cipro] Allergy Intermediate makes her Unverified 11/25/23 14:52 ill, vomits clavulanic acid Allergy Intermediate makes her Unverified 11/25/23 14:52 [From Augmentin] ill, vomits doxycycline Allergy Intermediate makes her Unverified 11/25/23 14:52 ill, vomits Sulfa (Sulfonamide Allergy Intermediate Daughter Unverified 11/25/23 14:52 Antibiotics) isnt too sure the reaction, more serious though metronidazole AdvReac Intermediate makes her Unverified 11/25/23 14:52 ill, vomits Home Medications Medication Instructions Recorded Confirmed Type alprazolam 0.25 mg tablet 0.25 mg PO DAILY PRN Anxiety 11/25/23 11/25/23 History apixaban 2.5 mg tablet (Eliquis) 2.5 mg PO BID 11/25/23 11/25/23 History dapagliflozin propanediol 10 mg 10 mg PO .LUNCH TIME 11/25/23 11/25/23 History tablet (Farxiga) furosemide 40 mg tablet 40 mg PO QAM 11/25/23 11/25/23 History hydralazine 100 mg tablet 100 mg PO TID 11/25/23 11/25/23 History nifedipine 30 mg tablet,extended 30 mg PO BID 11/25/23 11/25/23 History release Past Med/Surg History Medical History Sinus bradycardia History of pericarditis Paroxysmal atrial fibrillation CKD (chronic kidney disease), stage IV Pulmonary hypertension HLD (hyperlipidemia) HTN (hypertension) Surgical History Hx of tonsillectomy History of cataract surgery Family History Other Hypertension Social History Smoking Status: Former smoker Hx Alcohol Use: Yes Alcohol type: beer Alcohol Intake Frequency: Monthly or Less Hx Substance Use: No Preferred Language: Greek Communication Ability: Effective Operational Trainer Required: No Current Living Situation: Alone Current Living Situation Comment: 2 story tall house Feels Safe at Home: Yes Safety Concerns: Feels Safe At This Time Review of Systems All systems reviewed & are unremarkable except as noted in HPI & below. Physical Exam On physical examination the right hip, her leg lengths are equal. She has pain with logroll of the right hip.. Constitutional WD/WN, vitals as above Eyes PERRL, conjunctivae normal, anicteric sclerae ENMT external ear and nose normal, oropharynx normal Neck trachea midline, no thyromegaly Respiratory normal respiratory effort Cardiovascular RRR, no murmur, no edema Gastrointestinal (Abdomen) normal bowel sounds, soft, nontender, no hepatosplenomegaly Psychiatric A+Ox3, euthymic affect Results & Data Results & Data Laboratory Results . Diagnostic Findings X-rays of the right hip show a valgus impacted right femoral neck fracture.. PG Care Time/CCT Total # of Minutes Spent Total Time Spent with Patient: Total time spent is greater than 50% in coordination of care (as documented) at patient's floor/unit and/or counseling patient: Coding Level of Care Code 91582 IN/OBS CONSULT LVL 4,60M (57 - DECISION FOR SURGERY) Diagnoses Closed right femoral fracture S72.91XA
[2023-11-26] MEDS ORDERED: ePHEDrine sulfate 50 MG/ML AMP IV PRN (09:22)
[2023-11-26] MEDS ORDERED: ATROPINE SULFATE 0.1 MG/ML 10ML SYR IV PRN (09:22)
[2023-11-26] MEDS ORDERED: ONDANSETRON INJ 2 MG/ML 2 ML VIAL IV PRN (09:22)
--- NOTE | 2023-11-26 09:22 | Anesthesiology Consultation ---
Date of Service November 26, 2023 Assessment & Plan Chart Review Chart Review: Acceptable Risk for Surgery and Patient NOT seen in Pre Admission Testing Consults Requested none ASA ASA3 Proposed Anesthesia Anesthesia Type: General Risk / Benefits Reviewed With: PT / POA / Parent / Guardian, Accepts Plan and Informed Consent Obtained History Surgery Operation Date: 11/26/23 12:00 Proposed Procedures p ORIF Hip Cannulated Screw(Right) - Christopher Selby, DO Height/Weight Height: 5 ft 1 in Weight: 47.1 kg Allergies Allergy/AdvReac Type Severity Reaction Status Date / Time amoxicillin [From Augmentin] Allergy Intermediate makes her Unverified 11/25/23 14:52 ill, vomits ciprofloxacin [From Cipro] Allergy Intermediate makes her Unverified 11/25/23 14:52 ill, vomits clavulanic acid Allergy Intermediate makes her Unverified 11/25/23 14:52 [From Augmentin] ill, vomits doxycycline Allergy Intermediate makes her Unverified 11/25/23 14:52 ill, vomits Sulfa (Sulfonamide Allergy Intermediate Daughter Unverified 11/25/23 14:52 Antibiotics) isnt too sure the reaction, more serious though metronidazole AdvReac Intermediate makes her Unverified 11/25/23 14:52 ill, vomits Medications Home Medications Medication Instructions Recorded Confirmed Last Taken alprazolam 0.25 mg tablet 0.25 mg PO DAILY PRN Anxiety 11/25/23 11/25/23 Unknown apixaban 2.5 mg tablet (Eliquis) 2.5 mg PO BID 11/25/23 11/25/23 11/25/23 1 of 2 dapagliflozin propanediol 10 mg 10 mg PO .LUNCH TIME 11/25/23 11/25/23 Unknown tablet (Farxiga) furosemide 40 mg tablet 40 mg PO QAM 11/25/23 11/25/23 11/25/23 hydralazine 100 mg tablet 100 mg PO TID 11/25/23 11/25/23 11/25/23 1 of 3 nifedipine 30 mg tablet,extended 30 mg PO BID 11/25/23 11/25/23 11/25/23 release 1 of 2 Active Medications Generic Name Dose Route Start Last Admin Trade Name Freq PRN Reason Stop Dose Admin Acetaminophen 1,000 mg 11/25/23 18:00 11/26/23 08:42 Acetaminophen 500 Mg Tab PO 12/25/23 17:59 Not Given Q8H COURTNEY Hydralazine HCl 100 mg 11/25/23 21:00 11/26/23 07:41 Hydralazine Tab 50 Mg Tab PO 12/25/23 20:59 100 mg TID COURTNEY Administration Hydralazine HCl 10 mg 11/25/23 23:04 11/25/23 23:22 Hydralazine Hcl 20 Mg/Ml Vial IV 12/25/23 23:03 10 mg Q6H PRN Administration SBP>180 Miscellaneous 1 each 11/26/23 00:00 11/26/23 07:38 Dapagliflozin Propanediol [Farxiga] 10 Mg Tablet ~ Order Awaiting Action N/A 12/26/23 00:00 Not Given QS COURTNEY Nifedipine 30 mg 11/25/23 21:00 11/26/23 07:41 Nifedipine Extended Rel 30 Mg Tabcr PO 12/25/23 20:59 30 mg BID COURTNEY Administration Oxycodone HCl 5 mg 11/25/23 17:44 11/26/23 06:30 Oxycodone Hcl Ir 5 Mg Tab (Immediate Release) PO 12/09/23 17:43 5 mg Q4H PRN Administration MODERATE Pain (4,5,6) & Pre PT Past Medical History Medical History Sinus bradycardia History of pericarditis Paroxysmal atrial fibrillation CKD (chronic kidney disease), stage IV Pulmonary hypertension HLD (hyperlipidemia) HTN (hypertension) Exercise / Class Metabolic Activity II 4-5 Yardwork/Stairs/Walk up hill Past Family History Family History Other Hypertension Past Surgical History Surgical History Hx of tonsillectomy History of cataract surgery Past Anesthesia History No Hx of Anesthesia Complications and No Family Hx of Anesthesia Complications History of PONV No Hx of PONV and No Hx of Motion Sickness Social History Smoking Status: Former smoker Hx Alcohol Use: Yes Alcohol type: beer alcohol intake frequency: a few times a month Hx Substance Use: No Review of Systems ROS Unobtainable: All systems reviewed & are unremarkable except as noted in HPI & below Physical Exam Vital Signs Last Vital Signs Temp 37.1 C 11/26/23 08:44 Pulse 48 L 11/26/23 08:44 Resp 17 11/26/23 08:44 BP 167/52 H 11/26/23 08:44 Pulse Ox 94 11/26/23 08:44 O2 Del Method Room Air 11/26/23 08:44 ENMT Mouth: no TMJ abnormality Thyromental Distance: > or= 3.5 Finger Breadths Mallampati Class: II Neck normal visual inspection and trachea midline; neck extension not limited Respiratory normal respiratory effort Auscultation: lungs clear to auscultation bilaterally Cardiovascular Rate/Rhythm: regular rate and regular rhythm Heart Sounds: no murmur Musculoskeletal Spine: normal cervical ROM Extremities: full ROM of extremities Neurologic moves all extremities Psychiatric Orientation: alert and oriented x 3 Testing Laboratory Results 11/26/23 06:44 11/26/23 06:44 PT 10.6 Seconds (9.0-12.0) 11/25/23 11:31 INR 1.0 (0.9-1.1) 11/25/23 11:31 APTT 29 Seconds (21-31) 11/25/23 11:31 Urine Color Yellow 11/25/23 14:55 Urine Appearance Clear (Clear) 11/25/23 14:55 Urine pH 5.0 (4.5-7.5) 11/25/23 14:55 Ur Specific [place] 1.008 (1.000-1.030) 11/25/23 14:55 Urine Protein 1+ (Negative) H 11/25/23 14:55 Urine Glucose (UA) 1+ (Negative) H 11/25/23 14:55 Urine Ketones Negative (Negative) 11/25/23 14:55 Urine Nitrite Negative (Negative) 11/25/23 14:55 Ur Leukocyte Esterase Negative (Negative) 11/25/23 14:55 Urine WBC (Auto) 0-5 /hpf (0-5) 11/25/23 14:55 Urine RBC (Auto) 0-2 /hpf (0-2) 11/25/23 14:55 U Hyaline Cast (Auto) 0-2 /lpf (0-2) 11/25/23 14:55 U Epithel Cells (Auto) 0-2 /hpf (0-2) 11/25/23 14:55 Urine Bacteria (Auto) None Seen (None Seen) 11/25/23 14:55
[2023-11-26] MEDS ORDERED: fentaNYL citrate PF 100 MCG/2 ML VIAL ONE (09:31)
[2023-11-26] MEDS ORDERED: ACETAMINOPHEN 1000 MG/100 ML IV IV ONE (09:40)
[2023-11-26] MEDS: ceFAZolin 2000MG 2,000 MG/15 ML SYR IV SCH (09:50)
[2023-11-26] MEDS: BUPIVACAINE/EPINEPHRINE 0.5% MPF 1:200,000 30 ML VIAL ONE (10:09)
[2023-11-26] MEDS ORDERED: ePHEDrine sulfate 50 MG/ML AMP ONE (10:25)
[2023-11-26] MEDS ORDERED: LIDOCAINE 2% 2 ML VIAL/AMP(20MG/ML) INFIL ONE (10:25)
[2023-11-26] MEDS ORDERED: ONDANSETRON INJ 2 MG/ML 2 ML VIAL ONE (10:25)
[2023-11-26] MEDS ORDERED: PHENYLEPHRINE HCL 10 MG/ML VIAL ONE (10:25)
[2023-11-26] MEDS ORDERED: PROPOFOL IV EMULSION 10 MG/ML 20 ML VIAL IV ONE (10:25)
[2023-11-26] MEDS ORDERED: SUGAMMADEX SODIUM 200 MG/2 ML VIAL IV ONE (10:26)
--- NOTE | 2023-11-26 10:31 | Operative Report ---
PG Post Operative Report Pre & Post Diagnosis Operation Date: 11/26/23 12:00 Pre-Op Diagnosis: Valgus impacted right femoral neck fracture Post-Op Diagnosis: Valgus impacted right femoral neck fracture I identified the patient and participated in the time-out.: Yes Procedure Operation Date: 11/26/23 12:00 Actual Procedures p ORIF Right Hip Cannulated Screw(Right) - Christopher Selby DO Surgeon Christopher Selby DO Construction Worker Moises Camacho PA-C Estimated Blood Loss 20 Findings Consistent with Post-Op Diagnosis Specimens None Description of Procedure On November 26, 2023 Kiera was brought down from the hospital room to the preoperative holding area. The operative extremity was identified and signed. She was given a preoperative antibiotic. She was taken back to the operating room and put under general anesthesia. She was then transferred to the fracture table. The right leg was gently brought out to traction. Fluoroscopic images were used to ensure there is been no displacement of the hip. The right hip was then prepped and draped in sterile fashion. A timeout was done. The patient and the operative extremity was properly identified. A small incision was made laterally near the subtrochanteric region. Dissection was taken down through the fascia to the lateral cortex of the femur. A single guidepin was placed along the inferior cortex of the femoral neck and into the femoral head. Appropriate placement was checked on fluoroscopic images. A second pin was then placed along the posterior cortex in the middle of the femoral neck. This was advanced into the femoral head. A third guidewire was then placed along the anterior cortex in the middle of the femoral neck. Appropriate placement of all pins were checked on fluoroscopy. Screw lengths were then measured. 3 Synthes 7.3 mm cannulated screws were then placed. The guide pins were then removed. Final fluoroscopic images showed good alignment of this fracture and good placement of the screws. The wound was then irrigated. The deep fascia was then closed with #1 Vicryl. Skin was closed with 2-0 Vicryl and elvis. She was then placed in a soft dressing. She was then transferred to a hospital bed and taken to the postanesthesia care unit in stable condition. She tolerated the procedure well. Moises Camacho PA-C, was present for the entire procedure. He was critical for patient positioning, prepping, draping, retraction exposure, wound closure and application of sterile dressing. I attest to the content of the Intraoperative Record and any orders documented therein. Any exceptions are noted below.
--- NOTE | 2023-11-26 10:57 | Fluoroscopy Report ---
FL hip RT 2-3V CLINICAL HISTORY: RT CANNULATED SCREWS COMPARISON STUDY: None. FLUOROSCOPY TIME: 1 minute and 3 seconds FLUOROSCOPY IMAGES: 2 Ka,r: 8.7 mGy FINDINGS: There are 3 cannulated screws transfixing the right femoral neck fracture. The hardware avi ears intact. IMPRESSION: Fluoroscopic assistance as above. ACT 112: Negative or not required by law. Electronically signed by: Rober Beckett M.D. 11/26/2023 10:55 AM
[2023-11-26] MEDS: fentaNYL citrate PF 100 MCG/2 ML VIAL IV PRN (11:10)
[2023-11-26] MEDS: SODIUM CHLORIDE 0.9% 1,000 ML IV SCH (12:21)
--- NOTE | 2023-11-26 12:24 | Anesthesiology Progress Note ---
Date of Service November 26, 2023 Anesthesia Post Procedure Vital Signs Vital Signs: Temp Pulse Pulse Pulse Resp BP BP 11/26/23 12:12 36.9 C 52 L 18 103/41 L 11/26/23 12:00 46 L 22 156/59 H 11/26/23 11:45 49 L 20 141/52 H 11/26/23 11:35 53 L 17 136/43 L 11/26/23 11:25 57 L 18 158/40 H 11/26/23 11:15 36.9 C 61 17 164/49 H 11/26/23 11:05 57 L 18 161/54 H 11/26/23 10:55 71 17 161/53 H 11/26/23 10:45 72 20 176/45 H 11/26/23 10:39 37 C 77 21 167/59 H 11/26/23 08:44 37.1 C 48 L 17 167/52 H 11/26/23 07:18 43 L 11/26/23 04:00 36.8 C 48 L 18 160/49 H 11/26/23 01:42 53 L 189/51 H 11/26/23 00:23 54 L 195/56 H 11/25/23 23:10 36.6 C 48 L 18 203/50 H 11/25/23 22:03 50 L 11/25/23 19:35 36.9 C 55 L 18 180/64 H 11/25/23 18:22 66 11/25/23 17:46 36.5 C 71 18 213/48 H 11/25/23 17:46 11/25/23 17:03 58 L 18 190/43 H 11/25/23 16:30 55 L 20 186/58 H 11/25/23 16:00 62 18 217/54 H 11/25/23 15:31 68 Pulse Ox Pulse Ox O2 Del Method O2 Del Method O2 Flow Rate 11/26/23 12:12 95 Nasal Cannula 2 11/26/23 12:00 98 Nasal Cannula 2 11/26/23 11:45 97 Nasal Cannula 2 11/26/23 11:35 97 Nasal Cannula 2 11/26/23 11:25 98 Nasal Cannula 2 11/26/23 11:15 96 Nasal Cannula 2 11/26/23 11:05 98 Nasal Cannula 2 11/26/23 10:55 98 Nasal Cannula 2 11/26/23 10:45 99 Oxymask 3 11/26/23 10:39 93 Oxymask 6 11/26/23 08:44 94 Room Air 11/26/23 07:18 11/26/23 04:00 92 Room Air 11/26/23 01:42 11/26/23 00:23 11/25/23 23:10 95 Room Air 11/25/23 22:03 11/25/23 19:35 92 Room Air 11/25/23 18:22 11/25/23 17:46 95 Room Air 11/25/23 17:46 94 Room Air 11/25/23 17:03 93 Room Air 11/25/23 16:30 94 Room Air 11/25/23 16:00 90 Room Air 11/25/23 15:31 Pain Intensity Right Leg: Pain Intensity: 1 Transfer of Care Handoff Completed per policy Notes Mental Status: alert / awake / arousable Patient Amnestic to Procedure: Yes Nausea / Vomiting: adequately controlled Pain: adequately controlled Airway Patency, RR, SpO2: stable & adequate BP & HR: stable & adequate Hydration State: stable & adequate Anesthetic Complications: no major complications apparent and Pt Satisfied with anesthetic care
[2023-11-26] MEDS ORDERED: ROCURONIUM BROMIDE 10 MG/ML 5 ML VIAL IV ONE (13:26)
[2023-11-26] MEDS: HYDROmorphone INJ 0.5 MG/0.5 ML SYR IV PRN (14:10)
--- NOTE | 2023-11-26 14:50 | Hospitalist Progress Note ---
Date of Service November 26, 2023 Assessment & Plan (1) Fall: (2) Closed right femoral fracture: Plan: Patient is 88 year old female with PMH CKD IV, HTN, pulmonary hypertension, paroxysmal atrial fibrillation anticoagulated on Eliquis, sinus bradycardia presented to ER with complaint of trip and fall and right hip pain. Impacted subcapital fracture of the right proximal femur Secondary to fall --CT :There is no evidence of solid organ injury in the abdomen or pelvis on this unenhanced examination. Impacted subcapital fracture of the right proximal femur. There is a minimal and age indeterminate superior endplate compression deformity of L2 which may be chronic. Correlate for point tenderness. --CT head: No acute intracranial abnormality --Right ORIF Right Hip Cannulated Screw by on 11/26/23 Pain control Fall precautions PT OT as able Bowel regimen to prevent constipation Appreciate orthopedics input (3) HTN (hypertension): Plan: In ER patient hypertensive with SBP up to 200 Elevated BP, likely situational secondary to pain Also missed antihypertensives on presentation Continue home medications--nifedipine, hydralazine Monitor BP (4) CKD (chronic kidney disease), stage IV: Plan: MARY JANE on CKD IV Cr Baseline high 1 Follows with nephrology, Drew Zabala in [place], [place]. Continue farxiga Hold Lasix Avoid nephrotoxic agents as able Monitor renal function (5) Paroxysmal atrial fibrillation: Plan: H/O sinus bradycardia Not on any AV radha blocking agents Continue Eliquis for anticoagulation (6) Sinus bradycardia: Plan: Monitor DVT Px SCDs Eliquis Code Status Full Code Admission and Anticipated Discharge Date Admission Date: November 25, 2023 Subjective Patient is seen and examined at bedside Doing well postoperatively Denies any significant pain of right hip surgical site Also denies any chest pain, dyspnea, nausea, vomiting, abdominal pain Family at bedside No other complaints Review of Systems Review of Systems: All systems reviewed & are unremarkable except as noted in Subjective Physical Exam Physical Exam: Physical Exam: Vitals signs as noted above General Appearance:Thin, no apparent distress Head: normocephalic, Atraumatic Eyes: normal inspection, EOMI Neck: supple, Trachea midline Respiratory/Chest: Normal breath sounds, CTA, No accessory muscle use Cardiovascular: S1, S2, +murmur, bradycardia Abdomen/GI:Soft, Non tender, Bowel sounds present Extremities/Musculoskeletal:normal inspection, no edema, R hip surgical site in dressing Neurologic/Psych:AAOX3, grossly no focal neurological deficits Skin: normal color, warm Results & Data Results & Data Vital Signs (Past 12 Hours) Vital Signs Temp Pulse Pulse Pulse Resp BP BP 11/26/23 13:40 36.9 C 53 L 17 139/47 L 11/26/23 12:42 36.8 C 56 L 132/43 L 11/26/23 12:12 36.9 C 52 L 18 103/41 L 11/26/23 12:00 46 L 22 156/59 H 11/26/23 11:45 49 L 20 141/52 H 11/26/23 11:35 53 L 17 136/43 L 11/26/23 11:25 57 L 18 158/40 H 11/26/23 11:15 36.9 C 61 17 164/49 H 11/26/23 11:05 57 L 18 161/54 H 11/26/23 10:55 71 17 161/53 H 11/26/23 10:45 72 20 176/45 H 11/26/23 10:39 37 C 77 21 167/59 H 11/26/23 08:44 37.1 C 48 L 17 167/52 H 11/26/23 07:18 43 L 11/26/23 04:00 36.8 C 48 L 18 160/49 H Pulse Ox O2 Del Method O2 Flow Rate 11/26/23 13:40 94 Nasal Cannula 2 11/26/23 12:42 95 Nasal Cannula 2 11/26/23 12:12 95 Nasal Cannula 2 11/26/23 12:00 98 Nasal Cannula 2 11/26/23 11:45 97 Nasal Cannula 2 11/26/23 11:35 97 Nasal Cannula 2 11/26/23 11:25 98 Nasal Cannula 2 11/26/23 11:15 96 Nasal Cannula 2 11/26/23 11:05 98 Nasal Cannula 2 11/26/23 10:55 98 Nasal Cannula 2 11/26/23 10:45 99 Oxymask 3 11/26/23 10:39 93 Oxymask 6 11/26/23 08:44 94 Room Air 11/26/23 07:18 11/26/23 04:00 92 Room Air Laboratory Results Short CBC 11/26/23 Range/Units 06:44 WBC 8.94 (4.8-10.8) K/ul Hgb 10.1 L (12.0-16.0) g/dl Hct 30.9 L (37.0-47.0) % Plt Count 259 (130-400) K/uL BMP 11/26/23 06:44 Sodium 134 L Potassium 5.0 Chloride 104 Carbon Dioxide 24 BUN 64 H Creatinine 2.38 H Glucose 96 Calcium 8.3 L Liver Function 11/26/23 Range/Units 06:44 Total Bilirubin 0.4 (0.2-1.0) mg/dl AST 15 (13-39) U/L ALT 10 (7-52) U/L Alkaline Phosphatase 90 (34-104) U/L Albumin 3.6 (3.4-5.0) gm/dl Urine 11/25/23 Range/Units 14:55 Urine Color Yellow Urine Appearance Clear (Clear) Urine pH 5.0 (4.5-7.5) Ur Specific [place] 1.008 (1.000-1.030) Urine Protein 1+ H (Negative) Urine Glucose (UA) 1+ H (Negative)
[2023-11-26] MEDS: ceFAZolin 1000MG 1,000 MG/7.5 ML SYR IV SCH (17:19)
[2023-11-26] MEDS: DOCUSATE SODIUM 100 MG CAP PO SCH (21:03)
--- NOTE | 2023-11-26 22:33 | Electrocardiogram Report ---
Test Reason : Blood Pressure : / mmHG Vent. Rate : 056 BPM Atrial Rate : 056 BPM P-R Int : 178 ms QRS Dur : 100 ms QT Int : 452 ms P-R-T Axes : 067 037 073 degrees QTc Int : 436 ms Sinus bradycardia with marked sinus arrhythmia Moderate voltage criteria for LVH, may be normal variant ( Sokolow-Marte , Bassett product ) Borderline ECG No previous ECGs available Confirmed by Christiano Rodriguez ([id number]) on 11/26/2023 10:32:48 PM Referred By: REFERRED SELF Confirmed By:Christiano Rodriguez
--- NOTE | 2023-11-26 22:58 | Electrocardiogram Report ---
Test Reason : Blood Pressure : / mmHG Vent. Rate : 043 BPM Atrial Rate : 043 BPM P-R Int : 180 ms QRS Dur : 100 ms QT Int : 540 ms P-R-T Axes : 030 003 036 degrees QTc Int : 456 ms Marked sinus bradycardia Voltage criteria for left ventricular hypertrophy Abnormal ECG When compared with ECG of 25-NOV-2023 14:28, (unconfirmed) No significant change was found Confirmed by Christiano Rodriguez ([id number]) on 11/26/2023 10:58:07 PM Referred By: REFERRED SELF Confirmed By:Christiano Rodriguez
[2023-11-27 06:55] LABS: Basophils # (auto) 0.03 K/uL (0.00-0.20); Basophils % (auto) 0.4 %; Eosinophils # (auto) 0.26 K/uL (0.00-0.50); Eosinophils % (auto) 3.4 %; Hematocrit (blood only) 25.9 % (37.0-47.0); Hemoglobin 8.2 g/dl (12.0-16.0); Immature Granulocytes % (auto) 1.3 %; Lymphocytes # (auto) 0.83 K/uL (1.20-3.40); Lymphocytes % (auto) 10.9 %; Mean Corpuscular Hemoglobin 29.7 pg (25.0-34.0); Mean Corpuscular Hgb Conc 31.7 g/dL (32.0-36.0); Mean Corpuscular Volume 93.8 fL (80.0-100.0); Mean Platelet Volume 9.2 fL (9.4-12.4); Monocytes % (auto) 9.2 %; Neutrophils % (auto) 74.8 %; Platelet Count 211 K/uL (130-400); RDW Coefficient of Variation 14.1 % (11.5-14.5); RDW Standard Deviation 47.4 fL (36.4-46.3); Red Blood Count 2.76 M/uL (4.20-5.40); White Blood Count 7.62 K/ul (4.8-10.8)
[2023-11-27 07:12] LABS: BUN Creatinine Ratio 21.7 (10-20); Calcium 7.8 mg/dl (8.6-10.3); Est GFR (African American) 21.7 ml/min; Est GFR (Non-African American) 18.8 ml/min; Magnesium 2.2 mg/dl (1.7-2.4); Potassium 5.3 mmol/L (3.5-5.1)
[2023-11-27] MEDS: APIXABAN 2.5 MG TAB PO SCH (08:43)
[2023-11-27] MEDS: ERGOCALCIFEROL 1250 MCG (50,000 UNITS) CAP PO SCH (09:52)
--- NOTE | 2023-11-27 10:34 | Orthopedic Progress Note ---
Date of Service November 27, 2023 Assessment & Plan (1) Closed right femoral fracture: Overall she is doing as well as expected. She is pretty sore and pretty tired. She can be weightbearing as tolerated on the right hip. She is on Eliquis for DVT prophylaxis. She is orthopedically stable for discharge when medically ready. She may return to [place] or she may stay in town. If she stays in town she can follow-up with orthopedics in 2 weeks. Full orthopedic discharge instructions were placed in the discharge summary. Jerrell Qureshi was seen and examined at bedside this morning. Overall she is doing okay. She is little bit tired from yesterday. She is having some soreness in the hip but is not too bad. She has not been up yet. She has no other complaints.. Review of Systems All systems reviewed & are unremarkable except as noted in HPI & below. Physical Exam On physical examination of the left hip, the dressing is clean and dry. Her leg is out full extension. She has active dorsiflexion plantarflexion of her right ankle.. Results & Data Results & Data Laboratory Results . Diagnostic Findings . PG Care Time/CCT Total # of Minutes Spent Total Time Spent with Patient: Total time spent is greater than 50% in coordination of care (as documented) at patient's floor/unit and/or counseling patient: Coding Level of Care Code 33504 Post Operative Follow-Up Diagnoses Closed right femoral fracture S72.91XA
--- NOTE | 2023-11-27 16:00 | Hospitalist Progress Note ---
Date of Service November 27, 2023 Assessment & Plan (1) Fall: (2) Closed right femoral fracture: Plan: Patient is 88 year old female with PMH CKD IV, HTN, pulmonary hypertension, paroxysmal atrial fibrillation anticoagulated on Eliquis, sinus bradycardia presented to ER with complaint of trip and fall and right hip pain. Impacted subcapital fracture of the right proximal femur Secondary to fall Postoperative acute blood loss anemia --CT :There is no evidence of solid organ injury in the abdomen or pelvis on this unenhanced examination. Impacted subcapital fracture of the right proximal femur. There is a minimal and age indeterminate superior endplate compression deformity of L2 which may be chronic. Correlate for point tenderness. --CT head: No acute intracranial abnormality --Right ORIF Right Hip Cannulated Screw by on 11/26/23 Pain control Fall precautions PT OT recommends acute rehab Bowel regimen to prevent constipation Appreciate orthopedics input Plan to discharge to rehab facility as able Needs follow-up with orthopedics on discharge No indication for blood transfusion Monitor CBC (3) HTN (hypertension): Plan: In ER patient hypertensive with SBP up to 200 Elevated BP, likely situational secondary to pain Also missed antihypertensives on presentation Continue home medications--nifedipine, hydralazine Monitor better today (4) CKD (chronic kidney disease), stage IV: Plan: MARY JANE on CKD IV Cr Baseline high 1 Follows with nephrology, Drew Zabala in [place], [place]. Continue farxiga Hold Lasix Avoid nephrotoxic agents as able Monitor renal function Creatinine 2.2 today Hyperkalemia Likely secondary to MARY JANE Low potassium diet Monitor Vitamin D deficiency Started on vitamin D supplements (5) Paroxysmal atrial fibrillation: Plan: H/O sinus bradycardia Not on any AV radha blocking agents Continue Eliquis for anticoagulation (6) Sinus bradycardia: Plan: Monitor DVT Px SCDs Eliquis Code Status Full Code Disposition Rehab as able Admission and Anticipated Discharge Date Admission Date: November 25, 2023 Subjective Patient is seen and examined at bedside Hip pain at surgical site is controlled States having difficulty of right foot to dorsiflex Denies any chest pain, dyspnea, nausea, vomiting, abdominal pain + Flatus, no BM today Review of Systems Review of Systems: All systems reviewed & are unremarkable except as noted in Subjective Physical Exam Physical Exam: Physical Exam: Vitals signs as noted above General Appearance:Thin, no apparent distress Head: normocephalic, Atraumatic Eyes: normal inspection, EOMI Neck: supple, Trachea midline Respiratory/Chest: Normal breath sounds, CTA, No accessory muscle use Cardiovascular: S1, S2, +murmur, bradycardia Abdomen/GI:Soft, Non tender, Bowel sounds present Extremities/Musculoskeletal:normal inspection, no edema, R hip surgical site in dressing Neurologic/Psych:AAOX3, grossly no focal neurological deficits Skin: normal color, warm Results & Data Results & Data Vital Signs (Past 12 Hours) Vital Signs Temp Pulse Pulse Resp BP BP Pulse Ox 11/27/23 14:54 58 L 11/27/23 13:40 58 L 140/45 L 11/27/23 11:49 36.4 C L 47 L 17 148/60 H 96 11/27/23 11:25 11/27/23 10:46 90 11/27/23 07:42 36.7 C 55 L 16 163/72 H 94 11/27/23 07:19 58 L O2 Del Method O2 Flow Rate 11/27/23 14:54 11/27/23 13:40 11/27/23 11:49 Nasal Cannula 2 11/27/23 11:25 Room Air 11/27/23 10:46 11/27/23 07:42 Nasal Cannula 1 11/27/23 07:19 Laboratory Results Short CBC 11/27/23 Range/Units 05:52 WBC 7.62 (4.8-10.8) K/ul Hgb 8.2 L (12.0-16.0) g/dl Hct 25.9 L (37.0-47.0) % Plt Count 211 (130-400) K/uL BMP 11/27/23 05:52 Sodium 136 Potassium 5.3 H Chloride 106 Carbon Dioxide 24 BUN 49 H Creatinine 2.26 H Glucose 92 Calcium 7.8 L
--- NOTE | 2023-11-27 22:06 | Electrocardiogram Report ---
Test Reason : Blood Pressure : / mmHG Vent. Rate : 048 BPM Atrial Rate : 048 BPM P-R Int : 176 ms QRS Dur : 094 ms QT Int : 486 ms P-R-T Axes : 063 011 049 degrees QTc Int : 434 ms Sinus bradycardia with marked sinus arrhythmia Voltage criteria for left ventricular hypertrophy Abnormal ECG When compared with ECG of 26-NOV-2023 06:24, No significant change was found Confirmed by Patrick Augustin ([id number]) on 11/27/2023 10:06:19 PM Referred By: REFERRED SELF Confirmed By:Patrick Augustin
[2023-11-28 07:13] LABS: Hematocrit (blood only) 23.7 % (37.0-47.0); Hemoglobin 7.7 g/dl (12.0-16.0); Mean Corpuscular Hemoglobin 29.6 pg (25.0-34.0); Mean Corpuscular Hgb Conc 32.5 g/dL (32.0-36.0); Mean Corpuscular Volume 91.2 fL (80.0-100.0); Mean Platelet Volume 9.3 fL (9.4-12.4); Platelet Count 214 K/uL (130-400); RDW Coefficient of Variation 13.9 % (11.5-14.5); RDW Standard Deviation 47.2 fL (36.4-46.3); White Blood Count 8.06 K/ul (4.8-10.8)
[2023-11-28 07:35] LABS: BUN Creatinine Ratio 23.1 (10-20); Calcium 7.7 mg/dl (8.6-10.3); Creatinine Clr Calc Pharmacy 14.1 ml/min; Est GFR (Non-African American) 20.7 ml/min; Potassium 5.2 mmol/L (3.5-5.1)
--- NOTE | 2023-11-28 13:06 | Hospitalist Progress Note ---
Date of Service November 28, 2023 Assessment & Plan (1) Fall: (2) Closed right femoral fracture: Plan: Patient is 88 year old female with PMH CKD IV, HTN, pulmonary hypertension, paroxysmal atrial fibrillation anticoagulated on Eliquis, sinus bradycardia presented to ER with complaint of trip and fall and right hip pain. Impacted subcapital fracture of the right proximal femur Secondary to fall Postoperative acute blood loss anemia --CT :There is no evidence of solid organ injury in the abdomen or pelvis on this unenhanced examination. Impacted subcapital fracture of the right proximal femur. There is a minimal and age indeterminate superior endplate compression deformity of L2 which may be chronic. Correlate for point tenderness. --CT head: No acute intracranial abnormality --Right ORIF Right Hip Cannulated Screw by on 11/26/23 Pain control Fall precautions Bowel regimen to prevent constipation Appreciate orthopedics input Needs follow-up with orthopedics on discharge No indication for blood transfusion Monitor CBC Hb 7.[address] Selby on 11/28/23: regarding some difficulty of right foot dorsiflexion post surgery Not related to surgery, can go to rehab Given no other focal deficits, very unlikely CVA. Patient able to ambulate with PT and bare weight RLE Updated pt's daughter over the phone Advised to follow up with Ortho on discharge Plan to discharge to rehab facility today (3) HTN (hypertension): Plan: In ER patient hypertensive with SBP up to 200 Elevated BP, likely situational secondary to pain Also missed antihypertensives on presentation Continue home medications--nifedipine, hydralazine Monitor better today (4) CKD (chronic kidney disease), stage IV: Plan: MARY JANE on CKD IV Cr Baseline high 1 Follows with nephrology, Drew Zabala in [place], [place]. Continue farxiga Hold Lasix Avoid nephrotoxic agents as able Monitor renal function Creatinine 2.0 today Hyperkalemia Likely secondary to MARY JANE Low potassium diet K 5.2 today Monitor Given a dose of Veltassa Advised to get a repeat BMP in 3 days at rehab facility. Vitamin D deficiency Started on vitamin D supplements (5) Paroxysmal atrial fibrillation: Plan: H/O sinus bradycardia Not on any AV radha blocking agents Continue Eliquis for anticoagulation (6) Sinus bradycardia: Plan: Monitor DVT Px SCDs Eliquis Code Status Full Code Disposition Rehab today Admission and Anticipated Discharge Date Admission Date: November 25, 2023 Subjective Patient is seen and examined at bedside Still has hip pain at surgical site Discussed with today Still has some difficulty with right foot dorsiflex Denies any chest pain, dyspnea, nausea, vomiting, abdominal pain Plan to discharge to rehab facility today Review of Systems Review of Systems: All systems reviewed & are unremarkable except as noted in Subjective Physical Exam Physical Exam: Physical Exam: Vitals signs as noted above General Appearance:Thin, no apparent distress Head: normocephalic, Atraumatic Eyes: normal inspection, EOMI Neck: supple, Trachea midline Respiratory/Chest: Normal breath sounds, CTA, No accessory muscle use Cardiovascular: S1, S2, +murmur, bradycardia Abdomen/GI:Soft, Non tender, Bowel sounds present Extremities/Musculoskeletal:normal inspection, no edema, R hip surgical site in dressing Neurologic/Psych:AAOX3, grossly no focal neurological deficits Skin: normal color, warm Results & Data Results & Data Vital Signs (Past 12 Hours) Vital Signs Temp Pulse Pulse Resp BP BP Pulse Ox 11/28/23 11:55 36.8 C 63 20 157/50 H 90 11/28/23 07:47 37.3 C 57 L 15 167/52 H 93 11/28/23 06:48 62 11/28/23 03:53 36.9 C 64 20 161/59 H 93 O2 Del Method 11/28/23 11:55 Room Air 11/28/23 07:47 Room Air 11/28/23 06:48 11/28/23 03:53 Room Air Laboratory Results Short CBC 11/28/23 Range/Units 05:49 WBC 8.06 (4.8-10.8) K/ul Hgb 7.7 L (12.0-16.0) g/dl Hct 23.7 L (37.0-47.0) % Plt Count 214 (130-400) K/uL BMP 11/28/23 05:49 Sodium 135 L Potassium 5.2 H Chloride 106 Carbon Dioxide 22 BUN 48 H Creatinine 2.08 H Glucose 102 H Calcium 7.7 L
--- NOTE | 2023-11-28 13:21 | Discharge Summary ---
Date of Service November 28, 2023 Admission HPI Per Admitting Provider Patient is 88 year old female with PMH CKD IV, HTN, pulmonary hypertension, paroxysmal atrial fibrillation anticoagulated on Eliquis, sinus bradycardia presented to ER with complaint of trip and fall and right hip pain. History obtained from patient, patient's daughter. Patient's daughter was able to partially access some of patient's medical history and labs via patient portal. Patient states was dusting today when she stepped back and tripped over her shoe causing her to fall onto her right side. Denies hitting head or LOC. Patient complains of pain to her right hip that is radiating to her right thigh. She states she struggled to get up however was able to get up onto her left leg but had significant pain and was unable to bear weight on her right leg. Denies any other extremity pain. Last took Eliquis this morning. She reports took morning meds however missed her midday doses. Denies fever/chills, diaphoresis, N/V/D/C, MEDEL, dizziness, syncope, vision changes, neck pain, CP, SOB, orthopnea, palpit ations, cough, sore throat, rhinorrhea, abdominal pain, paresthesias, extremity edema, rashes, urinary symptoms. Admission Exam Per Admitting Provider General: mild distress secondary to right hip pain, WDWN Head: normocephalic, atraumatic Eyes: PERRL, conjunctiva non-injected, anicteric ENT: normal inspection external ears, nose, mucous membranes moist Neck: supple, trachea midline, non-tender Lungs: clear, no respiratory distress, no wheezing/rhonchi/rales CV: RRR, + murmur, no JVD, no pretibial edema Abd: normal BS, soft, non-tender Ext: no cyanosis, no calf tenderness; RLE: +diffuse tenderness to palpation anterior hip, no attempted ROM, distal pulses palpable. LLE and BUE with ROM intact and non-tender. Neuro: A&O x 3, no focal deficits noted, normal affect Skin: warm, dry Principal Diagnosis Impacted subcapital fracture of the right proximal femur Fall Postoperative acute blood loss anemia MARY JANE on CKD IV Hyperkalemia Vitamin D deficiency Discharge Data Allergies Allergy/AdvReac Type Severity Reaction Status Date / Time amoxicillin [From Augmentin] Allergy Intermediate makes her Unverified 11/25/23 14:52 ill, vomits ciprofloxacin [From Cipro] Allergy Intermediate makes her Unverified 11/25/23 14:52 ill, vomits clavulanic acid Allergy Intermediate makes her Unverified 11/25/23 14:52 [From Augmentin] ill, vomits doxycycline Allergy Intermediate makes her Unverified 11/25/23 14:52 ill, vomits Sulfa (Sulfonamide Allergy Intermediate Daughter Unverified 11/25/23 14:52 Antibiotics) isnt too sure the reaction, more serious though metronidazole AdvReac Intermediate makes her Unverified 11/25/23 14:52 ill, vomits Consultations 11/25/23 14:01 Consult Orthopedic Surgery Routine 11/25/23 14:12 ED Decision to Admit Stat 11/25/23 17:44 Consult Anesthesiology Routine Consult Orthopedic Surgery Routine Procedures Performed Operation Date: 11/26/23 12:00 Actual Procedures p ORIF Right Hip Cannulated Screw(Right) - Christopher Selby, Ordered Studies Laboratory Results WBC 8.06 K/ul (4.8-10.8) 11/28/23 05:49 RBC 2.60 M/uL (4.20-5.40) L 11/28/23 05:49 Hgb 7.7 g/dl (12.0-16.0) L 11/28/23 05:49 POC Hgb 12.2 g/dl (12.0-16.0) 11/25/23 11:38 Hct 23.7 % (37.0-47.0) L 11/28/23 05:49 POC Hct 36 % (37-47) L 11/25/23 11:38 MCV 91.2 fL (80.0-100.0) 11/28/23 05:49 MCH 29.6 pg (25.0-34.0) 11/28/23 05:49 MCHC 32.5 g/dL (32.0-36.0) 11/28/23 05:49 RDW Std Deviation 47.2 fL (36.4-46.3) H 11/28/23 05:49 RDW Coeff of Darline 13.9 % (11.5-14.5) 11/28/23 05:49 Plt Count 214 K/uL (130-400) 11/28/23 05:49 MPV 9.3 fL (9.4-12.4) L 11/28/23 05:49 Immature Gran % (Auto) 1.3 % 11/27/23 05:52 Neut % (Auto) 74.8 % 11/27/23 05:52 Lymph % (Auto) 10.9 % 11/27/23 05:52 [place] % (Auto) 9.2 % 11/27/23 05:52 Eos % (Auto) 3.4 % 11/27/23 05:52 Baso % (Auto) 0.4 % 11/27/23 05:52 Neut # (Auto) 5.70 K/uL (1.40-6.50) 11/27/23 05:52 Lymph # (Auto) 0.83 K/uL (1.20-3.40) L 11/27/23 05:52 [place] # (Auto) 0.70 K/uL (0.11-0.59) H 11/27/23 05:52 Eos # (Auto) 0.26 K/uL (0.00-0.50) 11/27/23 05:52 Baso # (Auto) 0.03 K/uL (0.00-0.20) 11/27/23 05:52 Immature Gran # (Auto) 0.10 K/uL (0.01-0.20) 11/27/23 05:52 PT 10.6 Seconds (9.0-12.0) 11/25/23 11:31 INR 1.0 (0.9-1.1) 11/25/23 11:31 APTT 29 Seconds (21-31) 11/25/23 11:31 PTT Ratio 1.1 11/25/23 11:31 POC Sodium 135 mmol/L (135-144) 11/25/23 11:38 Sodium 135 mmol/L (136-145) L 11/28/23 05:49 POC Potassium 4.9 mmol/L (3.3-5.0) 11/25/23 11:38 Potassium 5.2 mmol/L (3.5-5.1) H 11/28/23 05:49 POC Chloride 104 mmol/L (101-112) 11/25/23 11:38 Chloride 106 mmol/L (98-107) 11/28/23 05:49 Carbon Dioxide 22 mmol/L (21-32) 11/28/23 05:49 POC Total CO2 20 mmol/L (24-31) L 11/25/23 11:38 Anion Gap 7 (3-11) 11/28/23 05:49 POC Anion Gap 17.0 mmol/L (16-25) 11/25/23 11:38 POC BUN 62 mg/dl (7-18) H 11/25/23 11:38 BUN 48 mg/dl (6-23) H 11/28/23 05:49 Creatinine 2.08 mg/dl (0.6-1.2) H 11/28/23 05:49 POC Creatinine 2.5 mg/dl (0.6-1.3) H 11/25/23 11:38 Est Cr Clr Drug Dosing 14.1 ml/min 11/28/23 05:49 Est GFR ( Amer) 24.0 ml/min 11/28/23 05:49 Est GFR (Non-Af Amer) 20.7 ml/min 11/28/23 05:49 BUN/Creatinine Ratio 23.1 (10-20) H 11/28/23 05:49 Glucose 102 mg/dl (70-99(Fasting)) H 11/28/23 05:49 POC Glucose (other) 128 mg/dl (70-99) H 11/25/23 11:38 Calcium 7.7 mg/dl (8.6-10.3) L 11/28/23 05:49 POC Ioniz Calcium [place] 1.15 mmol/l (1.12-1.32) 11/25/23 11:38 Magnesium 2.2 mg/dl (1.7-2.4) 11/27/23 05:52 Total Bilirubin 0.4 mg/dl (0.2-1.0) 11/26/23 06:44 AST 15 U/L (13-39) 11/26/23 06:44 ALT 10 U/L (7-52) 11/26/23 06:44 Alkaline Phosphatase 90 U/L (34-104) 11/26/23 06:44 Total Protein 6.8 gm/dl (6.0-8.3) 11/26/23 06:44 Albumin 3.6 gm/dl (3.4-5.0) 11/26/23 06:44 Globulin 3.2 gm/dl (2.5-4.0) 11/26/23 06:44 Albumin/Globulin Ratio 1.1 (0.9-2) 11/26/23 06:44 25-OH Vitamin D Total 9.4 ng/ml (30-100) L 11/27/23 05:52 Urine Color Yellow 11/25/23 14:55 Urine Appearance Clear (Clear) 11/25/23 14:55 Urine pH 5.0 (4.5-7.5) 11/25/23 14:55 Ur Specific [place] 1.008 (1.000-1.030) 11/25/23 14:55 Urine Protein 1+ (Negative) H 11/25/23 14:55 Urine Glucose (UA) 1+ (Negative) H 11/25/23 14:55 Urine Ketones Negative (Negative) 11/25/23 14:55 Urine Blood Negative (Negative) 11/25/23 14:55 Urine Nitrite Negative (Negative) 11/25/23 14:55 Urine Bilirubin Negative (Negative) 11/25/23 14:55 Urine Urobilinogen Negative (Negative) 11/25/23 14:55 Ur Leukocyte Esterase Negative (Negative) 11/25/23 14:55 Urine WBC (Auto) 0-5 /hpf (0-5) 11/25/23 14:55 Urine RBC (Auto) 0-2 /hpf (0-2) 11/25/23 14:55 U Hyaline Cast (Auto) 0-2 /lpf (0-2) 11/25/23 14:55 U Epithel Cells (Auto) 0-2 /hpf (0-2) 11/25/23 14:55 Urine Bacteria (Auto) None Seen (None Seen) 11/25/23 14:55 Blood Type O Negative 11/26/23 09:00 Blood Type Recheck O Negative 11/26/23 06:44 Antibody Screen NEGATIVE 11/26/23 09:[address] 11/25/23 11:10 CT SCAN OF THE CERVICAL SPINE CLINICAL HISTORY: Trauma. Fall. COMPARISON STUDY: No priors. TECHNIQUE: CT scan of the cervical spine is performed from the skull base to the upper thoracic spine. Images are reviewed in the axial, sagittal, and coronal planes. IV contrast was not administered for this examination. A dose lowering technique was utilized adhering to the principles of ALARA. FINDINGS: Skeletal structures: The skeletal structures are osteopenic. There is no evidence of fracture or subluxation involving the cervical spine. Vertebral body height and alignment are maintained. There is straightening of the cervical lordosis. Anterior osteophytes are seen throughout the The odontoid process and lateral masses are intact. The atlantoaxial articulation is preserved noting productive degenerative change. The spinous processes appear intact. Intervertebral discs: There is moderate to severe disc space narrowing at C4-C5 and C5-C6 with associated endplate sclerosis. Moderate narrowing is seen at C3- C4 and C6-C7. Central canal: Posterior disc osteophyte complexes at C4-C5, C5-C6, and C6-C7 likely contribute to acquired compromise of the central canal. Soft tissues: The prevertebral and paraspinous soft tissues are within normal limits. The thyroid gland is heterogeneous. There is atherosclerotic calcification of the carotid bulbs. Calvarium: The visualized calvarium at the skull base appears intact. Brain parenchyma: Partially visualized brain parenchyma at the skull base is within normal limits. Sinuses and mastoids: The visualized paranasal sinuses are clear. The mastoid air cells are well pneumatized. Cerumen is noted in the left external auditory canal. Lung apices: Emphysematous change is noted at the apices. The imaged upper lobe lung parenchyma is otherwise clear. IMPRESSION: 1. There is no evidence of cervical spine fracture or subluxation. 2. Osteopenia and spondylotic change as above. ACT 112: Negative or not required by law. Electronically signed by: Michael Pringle M.D. 11/25/2023 12:34 PM Chest X-Ray 11/25/23 11:10 SINGLE VIEW CHEST CLINICAL HISTORY: Fall. FINDINGS: An AP upright chest radiograph is obtained. No prior studies are available for comparison at the time of dictation. The heart is enlarged noting atherosclerotic calcification of the thoracic aorta. The pulmonary vasculature is noncongested. Nonspecific interstitial thickening is likely chronic. The lungs and pleural spaces are clear. No pneumothorax is seen. The skeletal structures are osteopenic. The bony thorax is grossly intact. IMPRESSION: Cardiomegaly with no active disease in the chest. ACT 112: Negative or not required by law. Electronically signed by: Michael Pringle M.D. 11/25/2023 2:12 PM Femur X-Ray 11/25/23 11:10 SINGLE VIEW PELVIS; 2 VIEWS RIGHT HIP; 3 VIEWS RIGHT FEMUR CLINICAL HISTORY: Fall. Right leg injury. FINDINGS: An AP view of the pelvis, AP and frog-leg views of the right hip, with AP, frog-leg, and crosstable lateral views of the right femur are obtained. Correlation is made with pelvic CT performed earlier the same day 11/25/2023. The skeletal structures are osteopenic. There is an impacted subcapital fracture of the right proximal femur with overlying soft tissue edema. The distal right femur appears intact. No additional acute fracture is seen involving the left hip or the bony pelvis. Mild arthritic change and joint space narrowing is seen in the hips. Degenerative sclerosis is noted in the sacroiliac joints. Lumbosacral spondylosis is partially imaged. The right knee joint is grossly watson ntained. Phleboliths are seen in the pelvis. IMPRESSION: 1. Impacted subcapital fracture of the right proximal femur. 2. The distal right femur appears intact. 3. No additional fracture is seen involving the left hip or bony pelvis. Electronically signed by: Michael Pringle M.D. 11/25/2023 2:[address] 11/25/23 11:10 CT SCAN OF THE BRAIN WITHOUT IV CONTRAST CLINICAL HISTORY: Fall. COMPARISON STUDY: No priors. TECHNIQUE: Unenhanced axial CT scan of the brain is performed from the vertex to the skull base. A dose lowering technique was utilized adhering to the principles of ALARA. CT DOSE: 1407.47 mGy.cm FINDINGS: Brain parenchyma: There is age-related involutional change noting mild to moderate subcortical and periventricular microangiopathic disease. There is no hemorrhage, mass effect, or evidence of acute territorial ischemia by CT criteria. Hicks-white matter differentiation is preserved. No extra-axial fluid collection is seen. Ventricles, sulci, cisterns: Prominent secondary to involutional change. Intracranial vasculature: There is atherosclerotic calcification of the cavernous carotid and vertebral arteries. Calvarium: The skeletal structures are osteopenic. No depressed calvarial fracture is seen. Sinuses and mastoids: The visualized paranasal sinuses are clear. The mastoid air cells are well pneumatized. Orbits: The bony orbits are grossly intact. There are bilateral ocular lens implants. IMPRESSION: There is no hemorrhage, mass effect, or evidence of acute territorial ischemia by CT criteria. ACT 112: Negative or not required by law. Electronically signed by: Michael Pringle M.D. 11/25/2023 12:30 PM Hip/Pelvis X-Ray 11/25/23 11:11 SINGLE VIEW PELVIS; 2 VIEWS RIGHT HIP; 3 VIEWS RIGHT FEMUR CLINICAL HISTORY: Fall. Right leg injury. FINDINGS: An AP view of the pelvis, AP and frog-leg views of the right hip, with AP, frog-leg, and crosstable lateral views of the right femur are obtained. Correlation is made with pelvic CT performed earlier the same day 11/25/2023. The skeletal structures are osteopenic. There is an impacted subcapital fracture of the right proximal femur with overlying soft tissue edema. The distal right femur appears intact. No additional acute fracture is seen involving the left hip or the bony pelvis. Mild arthritic change and joint space narrowing is seen in the hips. Degenerative sclerosis is noted in the sacroiliac joints. Lumbosacral spondylosis is partially imaged. The right knee joint is grossly maintained. Phleboliths are seen in the pelvis. IMPRESSION: 1. Impacted subcapital fracture of the right proximal femur. 2. The distal right femur appears intact. 3. No additional fracture is seen involving the left hip or bony pelvis. Electronically signed by: Michael Pringle M.D. 11/25/2023 2:10 PM Tibia/Fibula X-Ray 11/25/23 11:11 LEFT TIBIA AND FIBULA 2 VIEWS CLINICAL HISTORY: Fall. Left leg injury. FINDINGS: AP and lateral views of the left tibia and fibula are obtained. No prior studies are available for comparison at the time of dictation. The skeletal structures are osteopenic. There is no radiographic evidence of left tibial or fibular fracture. The knee and ankle joints are grossly maintained. The overlying soft tissues are normal as imaged. IMPRESSION: No fracture is identified. Electronically signed by: Michael Pringle M.D. 11/25/2023 2:11 PM Abdomen/Pelvis CT 11/25/23 11:45 CT SCAN OF THE ABDOMEN AND PELVIS WITHOUT IV CONTRAST CLINICAL HISTORY: Fall. COMPARISON STUDY: No priors TECHNIQUE: CT scan of the abdomen and pelvis is performed from the lung bases to the proximal femora. Images are reviewed in the axial, sagittal, and coronal planes. IV contrast was not administered for this examination. Limited examination is significantly suboptimal without IV contrast in the setting of trauma. A dose lowering technique was utilized adhering to the principles of ALARA. FINDINGS: Lung bases: The heart is enlarged and without pericardial effusion. The lung bases are clear. Liver: The unenhanced liver is normal in size, contour, and attenuation. There is no intrahepatic biliary ductal dilatation. Gallbladder: There are calcified gallstones with no CT evidence of acute cholecystitis. Spleen: Normal in size and attenuation. Pancreas: The unenhanced pancreas is grossly unremarkable. Adrenal glands: There is nonspecific thickening of the adrenal glands. Kidneys: The unenhanced kidneys demonstrated cortical atrophy. There is mild bilateral hydronephrosis, likely related to degree of bladder distention. Simple and complex bilateral renal cysts measure up to 1.3 cm. No renal calculi are identified. Abdominal vasculature: The abdominal aorta is normal in course and caliber noting advanced atherosclerotic calcification. Bowel: There is rectosigmoid fecal retention and mild to moderate constipation. No bowel obstruction is seen. There is mild colonic diverticulosis without CT evidence of acute diverticulitis. The appendix is normal as visualized. Peritoneum: There is no intraperitoneal free air or abdominal ascites. Lymphadenopathy: None. Pelvic viscera: The bladder is distended but otherwise normal in appearance. The uterus and adnexa are normal as visualized. Skeletal structures: The skeletal structures are osteopenic. There is an impacted subcapital fracture of the right proximal femur with surrounding hemorrhage and lipohemarthrosis. The left proximal femur and the bony pelvis appear intact. There is an age-indeterminate superior endplate compression deformity of L2 with mild loss of height. No lytic or blastic lesions are seen. Soft tissues: The patient is cachectic. IMPRESSION: 1. There is no evidence of solid organ injury in the abdomen or pelvis on this unenhanced examination. 2. Impacted subcapital fracture of the right proximal femur. 3. There is a minimal and age indeterminate superior endplate compression deformity of L2 which may be chronic. Correlate for point tenderness. 4. No additional findings are suspicious for acute fracture. 5. Bladder distention. 6. Mild bilateral hydronephrosis is likely related to bladder distention. 7. Rectosigmoid fecal retention and moderate constipation. 8. Cardiomegaly. 9. Additional findings above. ACT 112: Negative or not required by law. Electronically signed by: Michael Pringle M.D. 11/25/2023 1:50 PM Hip X-Ray 11/26/23 07:00 FL hip RT 2-3V CLINICAL HISTORY: RT CANNULATED SCREWS COMPARISON STUDY: None. FLUOROSCOPY TIME: 1 minute and 3 seconds FLUOROSCOPY IMAGES: 2 Ka,r: 8.7 mGy FINDINGS: There are 3 cannulated screws transfixing the right femoral neck fracture. The hardware appears intact. IMPRESSION: Fluoroscopic assistance as above. ACT 112: Negative or not required by law. Electronically signed by: Rober Beckett M.D. 11/26/2023 10:55 AM Hospital Course (1) Fall: (2) Closed right femoral fracture: Patient is 88 year old female with PMH CKD IV, HTN, pulmonary hypertension, paroxysmal atrial fibrillation anticoagulated on Eliquis, sinus bradycardia presented to ER with complaint of trip and fall and right hip pain. Impacted subcapital fracture of the right proximal femur Secondary to fall Postoperative acute blood loss anemia --CT :There is no evidence of solid organ injury in the abdomen or pelvis on this unenhanced examination. Impacted subcapital fracture of the right proximal femur. There is a minimal and age indeterminate superior endplate compression deformity of L2 which may be chronic. Correlate for point tenderness. --CT head: No acute intracranial abnormality --Right ORIF Right Hip Cannulated Screw by on 11/26/23 Pain control Fall precautions Bowel regimen to prevent constipation Appreciate orthopedics input Needs follow-up with orthopedics on discharge No indication for blood transfusion Monitor CBC Hb 7.[address] Selby on 11/28/23: regarding some difficulty of right foot dorsiflexion post surgery Not related to surgery, can go to rehab Given no other focal deficits, very unlikely CVA. Patient able to ambulate with PT and bare weight RLE Updated pt's daughter over the phone Advised to follow up with Ortho on discharge Plan to discharge to rehab facility today (3) HTN (hypertension): In ER patient hypertensive with SBP up to 200 Elevated BP, likely situational secondary to pain Also missed antihypertensives on presentation Continue home medications--nifedipine, hydralazine Monitor better today (4) CKD (chronic kidney disease), stage IV: MARY JANE on CKD IV Cr Baseline high 1 Follows with nephrology, Drew Zabala in [place], [place]. Continue farxiga Hold Lasix Avoid nephrotoxic agents as able Monitor renal function Creatinine 2.0 today Hyperkalemia Likely secondary to MARY JANE Low potassium diet K 5.2 today Monitor Given a dose of Veltassa Advised to get a repeat BMP in 3 days at rehab facility. Vitamin D deficiency Started on vitamin D supplements (5) Paroxysmal atrial fibrillation: H/O sinus bradycardia Not on any AV radha blocking agents Continue Eliquis for anticoagulation (6) Sinus bradycardia: Monitor DVT Px SCDs Eliquis Code Status Full Code Disposition Rehab today Total Time Total Time Spent Total Time Spent (In Minutes): 57 minutes Discharge Plan Discharge Items Patient Disposition: Transfer Inpatient Rehab Fac Reason For Visit: FEMUR FRACTURE Discharge Diagnosis: Impacted subcapital fracture of the right proximal femur Fall Postoperative acute blood loss anemia MARY JANE on CKD IV Hyperkalemia Vitamin D deficiency Activity: Per Instructions section Exercise/Sports: Gradually increase as tolerated Non-emergency contact: Primary Care Provider and Surgeon Call non-emergency contact if: you have any medication questions, your symptoms worsen, your pain is concerning for you and you have a fever Follow-up/Referrals: Concetta Oliver DO [Outside Practitioners] - (Date & Time 12/19/2023 11:00 AM Provider Concetta Oliver DO Department [facility] ) Christopher Selby DO [Physician] - (Follow-up with Dr. Selby's PA (Christopher Jernigan) 2-3 weeks after your day of surgery.) Diet: Heart Healthy and Low Potassium (2gm) Addtl Attending Provider Instructions: Follow-up with your primary care physician in 1 week upon discharge from rehab facility Follow-up with your orthopedic surgeon Dr. Selby as advised. --Obtain blood(basic metabolic panel) in 1 week to monitor your creatinine, potassium levels. Discuss with your physician for further management. --Continue to hold Lasix for 2 more days. Further instructions as per your physician. --Recheck vitamin D levels in 6 weeks to monitor your vitamin D levels, adjustment of medications as needed. Seek immediate medical attention if your symptoms reoccur or worsen Please take all medications as instructed on discharge list below. Please call if you have any questions or problems. You can reach a [facility] hospitalist on duty at [facility] 24 hours a day by calling [phone] [facility] Provider Instructions: ORTHOPEDIC INSTRUCTIONS Hip Fracture Activity and Therapy Recommendations: 1. You were shown a series of exercises in the hospital. Do these exercises three times each day if you are able. 2. Get up and walk several times each day if you are capable. Make sure you have assistance is needed. For the first four weeks, try not to stand or walk for more than one hour at a time. If you do stand or walk for more than one hour, you will not hurt anything, but your leg will likely swell. 3. As you feel comfortable, you may change from the walker or crutches to a cane and then to independent walking if you are able. Please be safe. Medications: 1. Narcotic You will likely be sent from the hospital with the narcotic pain medication that worked best throughout your stay. 2. Eliquiscontinue your Eliquis as prescribed. 3. Other medications may be given for specific circumstances. If you have any questions, please call the office at [phone]. 4. Resume previous home medications unless otherwise instructed TEDs/Elastic Stockings: The white elastic stockings help limit swelling and prevent blood clots from forming in your legs. The more you wear them, the more they work. Wear them for six weeks. Dressing Care: [place] can be open to air as long as the incisions are not draining. If the incisions are draining or if the elvis are getting caught on your clothes then please cover the elvis with dry gauze. Change the dressings as necessary to keep the incision as dry as possible Showering: You may shower 5 days from the day of surgery as long as the incisions are not draining. Do not soak the incision. Let soapy water run over the elvis and pat them dry. Things To Watch For: 1. Drainage from the incision site that occurs more than one week after your surgery. 2. Increased redness at the incision site. 3. Fever above 102 degrees Fahrenheit. 4. Unusual chest pain or shortness of breath. 5. Call [facility] at with any of the above problems Follow-Up Visit: Follow-up with Dr. Selby's PA (Christopher Jernigan) 2-3 weeks after your day of surgery. He will remove your elvis and answer any questions. If you have any additional questions or concerns, Dr Selby is usually in the office at the same time and will be available Please call the office to set up an appointment for a time that works for you. If you are back in [place] within the next 2 weeks, please follow-up with a provider in [place] to remove elvis and help with postoperative care. Pending Studies at Discharge: No Stand-Alone Forms: My [facility] Skilled Items Patient informed of condition?: Yes DNR: No Discharge Level of Care: Acute rehab Communicable Disease: No Discharge Prognosis: Stable Lines: None Urinary Catheter: No Medications and DC Order Prescriptions: New docusate sodium 100 mg Capsule 100 mg PO BID PRN (Reason: constipation ) Qty: 0 0RF oxycodone 5 mg Tablet 5 mg PO Q4H PRNQty: 0 0RF polyethylene glycol 3350 [Miralax] 17 gram Powder In Packet 17 g PO DAILY PRNQty: 0 0RF ergocalciferol (vitamin D2) 1,250 mcg (50,000 unit) Capsule 1,250 mcg PO Mo@0900 Qty: 0 0RF Continued nifedipine 30 mg tablet extended release 30 mg PO BID alprazolam 0.25 mg tablet 0.25 mg PO DAILY PRN (Reason: Anxiety) hydralazine 100 mg tablet 100 mg PO TID Eliquis 2.5 mg tablet 2.5 mg PO BID dapagliflozin propanediol [Farxiga] 10 mg tablet 10 mg PO .LUNCH TIME Held furosemide 40 mg tablet 40 mg PO QAM Hold Instructions: for 2 days Discharge Orders: Discharge Order (Routine); Ordered 11/28/23 Ordered By: Ryley Bee Admission Data Admit Date/Time: 11/25/23 15:31 Attending Provider: Ryley Bee Admit Provider: Billie Arnold Primary Care Provider: PCP,NO Other Providers: Christopher Selby; Billie Arnold; Toshia Morin; [facility]
[2023-11-28] MEDS: PATIROMER CALCIUM SORBITEX 8.4 GM PACK PO ONE (13:48)
== END 2023-11-28 14:45 | DRG 481 ==
LOC: ED 10:20 → 2N 15:31 → SUATTDRO 15:31 → 2N 18:04